=== PATIENT | female | born 1990 | race Caucasian/White ===

== ENCOUNTER 2023-01-22 17:11 | Inpatient (IN) ==
[2023-01-22] MEDS ORDERED: LIDOCAINE 1% LOCAL 20 ML VIAL INFIL PRN (19:44)
[2023-01-22] MEDS ORDERED: OXYTOCIN 30 UNITS/500 ML BAG IV PRN (19:44)
--- NOTE | 2023-01-22 19:58 | Labor Progress Brief Note ---
Date of Service January 22, 2023 Subjective 32yo @ 37w1d with SIUP. Patient arrived to office today for scheduled care visit and was found to have no FHT. She had no LOF, no VB and no Ctx. has been complicated by velamentous cord insertion, but otherwise has been essentially unremarkable. She had a routine visit at 34w6d and all was well. She called the office at 36w1d with c/o decreased FM and had a NST which was reassuring. She notes she felt good FM over the weekend after that, and even yesterday evening she feels sure she was noting movement. The patient had her mother and MIL with her at the office today anticipating a growth scan due to velamentous cord. Although the patient voices that she expected everything was OK, the scan unfortunately diagnosed IUFD, a vertex- presenting baby measuring 36w6d, and appeared to show a clot in the cord. The patient was counseled on the diagnosis by Dr. Ríos in the office and given options of delivery or Wednesday, and she preferred to come to L&D to proceed with treatment tonight. She arrived with her Mom and MIL, and her Dad and the FOB arrived together shortly thereafter. She and the FOB were given time together to grieve, and the family called the director social welfare to come to the hospital to visit with them this evening. Assessment & Plan (1) demise: Plan: Counseling with patient and family on diagnosis made today at office. Cause is felt to be velamentous cord insertion with likely clot in the cord, aka "cord accident," and it was reviewed with the patient and family that this is not something which she is at fault for nor could have influenced; it is an unlikely, but known and possible, risk of the velamentous insertion. We discussed that additional testing can be done to look for causes of IUFD, but at this time patient does not have an interest in genetic testing nor autopsy. She was counseled on options for proceeding from here: vaginal delivery via IOL, delivery electively with regional or general anesthesia. She is interested in beginning an IOL once the director social welfare's visit is completed. She would like an epidural placed prior to onset of induction agents. She understands that there is a possibility of delivery being required, as it may for any term delivery, in the event of CPD, and that she will be able to choose regional or GETA if that occurs. Her mom voices that Mallory herself was delivered by as narrow pelvis runs in their family. Patient says she understands and accepts this if it becomes necessary. Will get basic labs and additional IUFD workup labs, place IV, and wait for family/director social welfare visitation to be complete before vaginal exam and determination of induction agents per patient wishes. (2) Velamentous insertion of umbilical cord: Admission and Anticipated Discharge Date Admission Date: January 22, 2023 Physical Exam Constitutional: WD/WN, vitals as above Eyes: PERRL, conjunctivae normal, anicteric sclerae Neck: supple Respiratory: normal respiratory effort and able to speak in complete sentences; no respiratory distress Cardiovascular: Rate/Rhythm: regular rate and regular rhythm Gastrointestinal (Abdomen): Gravid / AGA, nontender Psychiatric: A+Ox3, euthymic affect Genitourinary: Cervical exam deferred until after family/director social welfare visit at patient request. Results & Data Vital Signs (Past 12 Hours) Vital Signs Temp Pulse Resp BP 01/22/23 17:31 133 H 135/83 01/22/23 17:23 98.8 F 20 Coding Level of Care Code None Diagnoses demise Velamentous insertion of umbilical cord O43.129
[2023-01-22] MEDS: LACTATED RINGER'S 1,000 ML IV PRN ×2 (21:51→22:51)
[2023-01-22] MEDS ORDERED: ePHEDrine sulfate 50 MG/ML AMP ONE (22:40)
[2023-01-22] MEDS ORDERED: fentaNYL citrate PF 100 MCG/2 ML VIAL ONE (22:40)
[2023-01-22] MEDS ORDERED: SODIUM CHLORIDE 0.9% PF INJ 10 ML VIAL ONE (22:40)
[2023-01-22] MEDS ORDERED: fentANYL 2 MCG/ML BUPIVacaine 0.125%-NSS 100ML BAG ONE (22:40)
[2023-01-22] MEDS ORDERED: LIDOCAINE 2%/EPINEPHRINE 1:200,000 20 ML PF ONE (22:41)
[2023-01-22] MEDS ORDERED: BUPIVACAINE 0.25% PF 30 ML VIAL ONE (22:41)
[2023-01-22] MEDS ORDERED: miSOPROStoL 50 MCG TAB PV ONE (23:01)
[2023-01-22 23:12] LABS: Hematocrit (blood only) 33.4 % (37.0-47.0); Hemoglobin 11.2 g/dl (12.0-16.0); Mean Corpuscular Hemoglobin 29.2 pg (25.0-34.0); Mean Corpuscular Hgb Conc 33.5 g/dL (32.0-36.0); Mean Platelet Volume 10.5 fL (9.4-12.4); Platelet Count 302 K/uL (130-400); RDW Coefficient of Variation 13.5 % (11.5-14.5); RDW Standard Deviation 42.1 fL (36.4-46.3); Red Blood Count 3.84 M/uL (4.20-5.40); White Blood Count 11.74 K/ul (4.8-10.8)
[2023-01-22] MEDS ORDERED: fentaNYL citrate PF 100 MCG/2 ML VIAL EPI PRN (23:16)
[2023-01-22] MEDS ORDERED: fentaNYL citrate PF 100 MCG/2 ML VIAL EPI STA (23:16)
[2023-01-22] MEDS ORDERED: LIDOCAINE 2% MPF LOCAL 5 ML VIAL EPI PRN (23:16)
[2023-01-22] MEDS ORDERED: NALBUPHINE HCL INJ 10 MG/ML AMP IV PRN (23:16)
[2023-01-22] MEDS ORDERED: SODIUM CHLORIDE 0.9% PF INJ 10 ML VIAL EPI PRN (23:16)
[2023-01-22] MEDS ORDERED: SODIUM CHLORIDE 0.9% PF INJ 10 ML VIAL EPI STA (23:16)
[2023-01-22] MEDS ORDERED: NALOXONE HCL 0.4 MG/1 ML VIAL/CARP IV PRN (23:16)
[2023-01-22] MEDS ORDERED: BUPIVACAINE 0.25% PF 30 ML VIAL EPI PRN (23:16)
[2023-01-22] MEDS ORDERED: ROPIVACAINE 0.5% PF 5 MG/ML 20 ML VIAL EPI PRN (23:16)
[2023-01-22] MEDS ORDERED: BUPIVACAINE 0.25% PF 30 ML VIAL EPI STA (23:16)
[2023-01-22] MEDS ORDERED: diphenhydrAMINE 50 MG/ML VIAL IV PRN (23:16)
[2023-01-22] MEDS ORDERED: NALOXONE HCL 1 MG in SODIUM CHLORIDE 0.9% 1,000 ML IV PRN (23:16)
[2023-01-22] MEDS ORDERED: LIDOCAINE 2%/EPINEPHRINE 1:200,000 20 ML PF EPI STA (23:16)
--- NOTE | 2023-01-22 23:16 | Anesthesiology Consultation ---
Date of Service January 22, 2023 Assessment & Plan Chart Review Chart Review: Acceptable Risk for Labor Epidural Consults Requested none History Height/Weight Height: 5 ft 2 in Weight: 107.955 kg Allergies Allergy/AdvReac Type Severity Reaction Status Date / Time No Known Allergies Allergy Verified 01/06/23 15:03 Medications Home Medications Medication Instructions Recorded Confirmed Last Taken prenat.vits,tona,[id number] 1 tab PO DAILY 10/07/20 01/06/23 Unknown promethazine 12.5 mg tablet 12.5 mg PO Q6H PRN nausea and 06/22/22 01/06/23 Unknown vomiting #30 tabs Active Medications Generic Name Dose Route Start Last Admin Trade Name Freq PRN Reason Stop Dose Admin Lactated Ringer's 1,000 mls @ 125 mls/hr 01/22/23 19:44 01/22/23 22:51 Lr IV 01/24/23 19:43 125 mls/hr .Q8H PRN Administration L&D Protocol Protocol Past Medical History Medical History (Updated 01/22/23 @ 16:50 by Bhavesh Ríos MD, FACOG) Measles Varicella vaccine Past Family History Family History (Updated 07/06/22 @ 09:06 by Pily Monson, MARGAUX) Grandmother (Maternal) Breast cancer Grandfather (Maternal) Diabetes Stroke H/O heart artery stent Denies family history of Ovarian cancer Colorectal cancer Past Surgical History Surgical History (Updated 07/06/22 @ 09:04 by Pily Monson, RN) S/P rhinoplasty Social History Smoking Status: Never smoker Do You Dip or Chew Tobacco: No Hx Alcohol Use: No Hx Substance Use: No Physical Exam Vital Signs Last Vital Signs Temp 37.0 C 01/22/23 21:57 Pulse 129 H 01/22/23 21:57 Resp 18 01/22/23 21:57 BP 119/76 01/22/23 21:57 Constitutional WD/WN, vitals as above Eyes PERRL, conjunctivae normal, anicteric sclerae Respiratory normal respiratory effort and able to speak in complete sentences; no respiratory distress Cardiovascular Rate/Rhythm: regular rate and regular rhythm Psychiatric A+Ox3, euthymic affect Testing Laboratory Results 01/22/23 22:35
[2023-01-22 23:31] LABS: Albumin Level 3.2 gm/dl (3.4-5.0); BUN Creatinine Ratio 10.2 (10-20); Bilirubin,Total 0.3 mg/dl (0.2-1.0); Calcium 8.7 mg/dl (8.6-10.3); Creatinine Clr Calc Pharmacy 188.8 ml/min; Est GFR (African American) 148.4 ml/min; Globulin 3.1 gm/dl (2.5-4.0); Potassium 3.6 mmol/L (3.5-5.1); Total Protein 6.3 gm/dl (6.0-8.3)
[2023-01-22] MEDS: fentANYL 2 MCG/ML BUPIVacaine 0.125%-NSS 100ML BAG EPI PRN (23:46)
[2023-01-23] MEDS: ePHEDrine sulfate 50 MG/ML AMP IV PRN ×2 (00:04→00:27)
--- NOTE | 2023-01-23 00:15 | Labor Progress Brief Note ---
Date of Service January 23, 2023 Subjective Patient feels ready to begin IOL. Has obtained epidural which she requested be in place prior to any induction agents including cytotec. Assessment & Plan (1) demise: Plan Labs so far normal except for mild leukocytosis likely c/w . Induction begun with cytotec. Plan is for hollis placement, as previously discussed with patient, given likely prolonged time in bed without ambulating to void / need for repeated straight catheterization. Will also order SCD's given likely prolonged time in bed. Admission and Anticipated Discharge Date Admission Date: January 22, 2023 Physical Exam Genitourinary: cl/th/hi Cytotec 50mcg placed PV [place] quiet Results & Data Vital Signs (Past 12 Hours) Vital Signs Temp Pulse Resp BP Pulse Ox 01/23/23 00:11 86 97/54 L 94 01/23/23 00:09 95 01/23/23 00:09 82 01/23/23 00:09 84 89/53 L 01/23/23 00:07 81 95/52 L 01/23/23 00:04 84 87/48 L 95 01/23/23 00:03 69 84/42 L 01/23/23 00:02 112 H 90/44 L 01/23/23 00:00 124 H 94 01/22/23 23:59 131 H 112/59 L 95 01/22/23 23:57 141 H 120/56 L 01/22/23 23:55 141 H 118/58 L 01/22/23 23:54 147 H 96 01/22/23 23:53 142 H 120/58 L 01/22/23 23:51 139 H 136/69 01/22/23 23:49 143 H 135/72 95 01/22/23 23:47 129 H 126/72 01/22/23 23:45 126 H 135/68 01/22/23 23:44 127 H 95 01/22/23 23:39 121 H 97 01/22/23 23:34 81 L 01/22/23 23:34 130 H 01/22/23 23:34 133 H 92 01/22/23 23:29 139 H 96 01/22/23 23:24 134 H 98 01/22/23 21:57 98.6 F 129 H 18 119/76 01/22/23 17:31 133 H 135/83 01/22/23 17:23 98.8 F 20 Coding Level of Care Code None Diagnoses demise
[2023-01-23 02:46] LABS: Appearance Urine Clear (Clear); Bacteria Urine Automated Negative (Negative); Bilirubin Urine Negative (Negative); Blood Urine Negative (Negative); Color Urine Yellow; Epithelial Cell Urine Auto 20-30 /lpf (0-5); Glucose Urine UA Negative (Negative); Ketones Urine 1+ (Negative); Leukocyte Esterase Urine Negative (Negative); Nitrite Urine Negative (Negative); Protein Urine Trace (Negative); RBC Urine Automated 0-4 /hpf (0-4); Specific Gravity Urine 1.011 (1.000-1.030); Urobilinogen Urine Negative (Negative); pH Urine 6.5 (4.5-7.5)
[2023-01-23 04:02] LABS: Amphetamines+Metham, Urine Neg (Neg); Barbiturates, Urine Neg (Neg); Benzodiazepine, Urine Neg (Neg); Cocaine, Urine Neg (Neg); MDMA (Ecstacy), Urine Neg (Neg); Methadone, Urine Neg (Neg); Opiate, Urine Pos (Neg); Phencyclidine, Urine Neg (Neg)
[2023-01-23] MEDS ORDERED: miSOPROStoL 50 MCG TAB ONE (04:17)
--- NOTE | 2023-01-23 04:29 | Labor Progress Brief Note ---
Date of Service January 23, 2023 Subjective Comfortable with epidural, hollis, SCD's. Just had IV replaced as it was not running well. Assessment & Plan (1) demise: Plan: IOL in progress. First dose cytotec with some cervical change. Would advise another dose given low Menezes score at this point. 50mcg administered PV. Admission and Anticipated Discharge Date Admission Date: January 22, 2023 Physical Exam Genitourinary: ft/50/-2 Small bloody show on glove No LOF [place] Q2m Results & Data Vital Signs (Past 12 Hours) Vital Signs Temp Pulse Resp BP Pulse Ox Pulse Ox O2 Del Method 01/23/23 02:00 95 Room Air 01/23/23 04:19 134 H 93 01/23/23 04:18 139 H 128/61 01/23/23 04:14 126 H 94 01/23/23 04:10 125 H 88 L 01/23/23 04:09 123 H 94 01/23/23 04:04 120 H 93 01/23/23 03:59 120 H 93 01/23/23 03:54 124 H 94 01/23/23 03:49 120 H 94 01/23/23 03:50 121 H 125/55 L 01/23/23 03:44 122 H 96 01/23/23 03:41 120 H 82 L 01/23/23 03:39 111 H 94 01/23/23 03:34 94 01/23/23 03:34 108 H 01/23/23 03:34 105 H 106/56 L 01/23/23 03:29 105 H 95 01/23/23 03:24 108 H 94 01/23/23 03:19 111 H 94 01/23/23 03:18 114 H 110/66 01/23/23 03:14 112 H 94 01/23/23 03:09 110 H 93 01/23/23 03:04 112 H 95 01/23/23 03:03 111 H 120/65 01/23/23 02:59 115 H 94 01/23/23 02:54 111 H 94 01/23/23 02:49 112 H 93 01/23/23 02:48 111 H 130/62 01/23/23 02:44 118 H 96 01/23/23 02:39 126 H 94 01/23/23 02:34 122 H 94 01/23/23 02:32 123 H 01/23/23 02:32 129 H 118/61 89 L 01/23/23 02:29 117 H 97 01/23/23 02:24 118 H 96 01/23/23 02:19 108 H 95 01/23/23 02:14 107 H 96 01/23/23 02:15 112 H 134/65 01/23/23 02:12 116 H 130/74 01/23/23 02:09 114 H 96 01/23/23 02:04 117 H 96 01/23/23 02:01 116 H 132/91 01/23/23 01:59 114 H 99 01/23/23 01:56 123 H 140/63 01/23/23 01:54 118 H 95 01/23/23 01:51 109 H 130/69 01/23/23 01:49 104 H 95 01/23/23 01:46 117 H 129/73 01/23/23 01:44 121 H 95 01/23/23 01:45 122 H 90 01/23/23 01:39 110 H 93 01/23/23 01:40 109 H 111/65 01/23/23 01:37 113 H 94 01/23/23 01:36 110 H 120/65 01/23/23 01:34 104 H 94 01/23/23 01:32 110 H 117/63 01/23/23 01:30 105 H 93 01/23/23 01:29 120 H 94 01/23/23 01:26 110 H 111/65 01/23/23 01:24 105 H 94 01/23/23 01:21 113 H 118/64 01/23/23 01:19 112 H 92 01/23/23 01:14 106 H 95 01/23/23 01:15 102 H 116/58 L 01/23/23 01:13 91 H 94 01/23/23 01:12 90 128/62 01/23/23 01:09 90 96 01/23/23 01:06 97 H 93 01/23/23 01:04 86 94 01/23/23 01:05 89 110/61 01/23/23 01:01 95 H 106/57 L 01/23/23 00:59 95 01/23/23 00:59 103 H 01/23/23 00:59 116 H 92 01/23/23 00:57 105 H 118/67 01/23/23 00:54 100 H 95 01/23/23 00:52 102 H 94 01/23/23 00:50 110 H 110/58 L 01/23/23 00:49 97 H 94 01/23/23 00:47 93 H 93 01/23/23 00:45 99 H 106/58 L 01/23/23 00:44 102 H 93 01/23/23 00:42 104 H 93 01/23/23 00:41 101 H 115/66 01/23/23 00:39 86 92 01/23/23 00:34 118 H 96 01/23/23 00:33 115 H 126/68 01/23/23 00:30 116 H 109/79 01/23/23 00:29 102 H 95 01/23/23 00:27 76 93 01/23/23 00:26 81 83/44 L 01/23/23 00:24 92 H 96 01/23/23 00:21 109 H 106/58 L 01/23/23 00:19 120 H 98/53 L 96 01/23/23 00:17 115 H 104/57 L 01/23/23 00:15 102 H 105/57 L 01/23/23 00:14 107 H 95 01/23/23 00:13 105 H 104/59 L 01/23/23 00:11 86 97/54 L 94 01/23/23 00:09 95 01/23/23 00:09 82 01/23/23 00:09 84 89/53 L 01/23/23 00:07 81 95/52 L 01/23/23 00:04 84 87/48 L 95 01/23/23 00:03 69 84/42 L 01/23/23 00:02 112 H 90/44 L 01/23/23 00:00 124 H 94 01/22/23 23:59 131 H 112/59 L 95 01/22/23 23:57 141 H 120/56 L 01/22/23 23:55 141 H 118/58 L 01/22/23 23:54 147 H 96 01/22/23 23:53 142 H 120/58 L 01/22/23 23:51 139 H 136/69 01/22/23 23:49 143 H 135/72 95 01/22/23 23:47 129 H 126/72 01/22/23 23:45 126 H 135/68 01/22/23 23:44 127 H 95 01/22/23 23:39 121 H 97 01/22/23 23:34 81 L 01/22/23 23:34 130 H 01/22/23 23:34 133 H 92 01/22/23 23:29 139 H 96 01/22/23 23:24 134 H 98 01/22/23 21:57 98.6 F 129 H 18 119/76 01/22/23 17:31 133 H 135/83 01/22/23 17:23 98.8 F 20 Coding Level of Care Code None Diagnoses demise
[2023-01-23 05:22] LABS: Amphetamines+Metham, Urine Neg (Neg); Barbiturates, Urine Neg (Neg); Benzodiazepine, Urine Neg (Neg); Cocaine, Urine Neg (Neg); MDMA (Ecstacy), Urine Neg (Neg); Methadone, Urine Neg (Neg); Opiate, Urine Pos (Neg); Phencyclidine, Urine Neg (Neg)
[2023-01-23] MEDS: LACTATED RINGER'S 1,000 ML IV PRN ×2 (07:14→21:43)
[2023-01-23] MEDS: fentANYL 2 MCG/ML BUPIVacaine 0.125%-NSS 100ML BAG EPI PRN ×2 (08:26→16:48)
[2023-01-23] MEDS: OXYTOCIN 30 UNITS/500 ML BAG IV PRN (11:03)
--- NOTE | 2023-01-23 12:43 | Obstetrical Progress Note ---
Date of Service January 23, 2023 Assessment & Plan (1) demise: Plan: IUFD at 37 weeks with cervix now favorable enough to place cervical balloon. will also start pitocin augmentation. plant to AROM when balloon is delivered if not already ruptured NOTE: balloon placed at 1000 this morning Admission and Anticipated Discharge Date Admission Date: January 22, 2023 Subjective Patient assessed at 10 am this morning. patient still comfortable with epidural analgesia. Review of Systems Review of Systems: All systems reviewed & are unremarkable except as noted in HPI & below Physical Exam Constitutional: WD/WN, vitals as above Psychiatric: A+Ox3, euthymic affect Genitourinary: OB Exam Abdomen: + vertex (?face presentation) and + irregular contractions Manual OB Exam: + cervical dilation 1 cm, + cervical effacement 80% and + station -2 OB Exam Monitor Tracing: + external FHT monitor used cervical balloon placed under direct visualization. pooling of bloody fluid vaginal vault noted. 40cc sterile water placed into the balloon and the catheter placed on traction and attached to her right thigh. she tolerated the procedure well. Results & Data Vital Signs (Past 12 Hours) Vital Signs Temp Pulse Resp BP Pulse Ox Pulse Ox O2 Del Method 01/23/23 07:15 98.8 F 16 01/23/23 02:00 95 Room Air 01/23/23 12:35 129 H 98 01/23/23 12:34 125 H 116/55 L 01/23/23 12:30 127 H 96 01/23/23 12:25 131 H 97 01/23/23 12:20 136 H 99 01/23/23 12:19 144 H 134/77 01/23/23 12:15 142 H 98 01/23/23 12:10 166 H 95 01/23/23 12:05 133 H 100 01/23/23 12:03 133 H 113/55 L 01/23/23 12:00 146 H 98 01/23/23 11:55 131 H 98 01/23/23 11:50 126 H 98 01/23/23 11:48 123 H 108/59 L 01/23/23 11:45 134 H 99 01/23/23 11:40 120 H 97 01/23/23 11:35 117 H 97 01/23/23 11:33 118 H 111/60 01/23/23 11:30 125 H 98 01/23/23 11:25 127 H 97 01/23/23 11:20 123 H 98 01/23/23 11:18 126 H 112/63 01/23/23 11:15 130 H 97 01/23/23 11:10 133 H 96 01/23/23 11:05 136 H 98 01/23/23 11:04 134 H 106/64 01/23/23 11:00 125 H 96 01/23/23 10:55 119 H 100 01/23/23 10:50 127 H 100 01/23/23 10:48 126 H 109/59 L 01/23/23 10:45 132 H 95 01/23/23 10:39 134 H 100 01/23/23 10:34 134 H 96 01/23/23 10:33 127 H 112/58 L 01/23/23 10:29 129 H 96 01/23/23 10:24 142 H 90 01/23/23 10:20 142 H 82 L 01/23/23 10:19 120 H 126/69 95 01/23/23 10:14 112 H 93 01/23/23 10:09 125 H 95 01/23/23 10:04 134 H 93 01/23/23 10:03 130 H 120/64 01/23/23 10:00 134 H 87 L 01/23/23 09:59 131 H 92 01/23/23 09:54 90 01/23/23 09:54 132 H 01/23/23 09:54 143 H 87 L 01/23/23 09:49 141 H 93 01/23/23 09:48 141 H 124/66 01/23/23 09:44 132 H 93 01/23/23 09:39 139 H 94 01/23/23 09:34 131 H 94 01/23/23 09:33 136 H 119/56 L 01/23/23 09:29 133 H 95 01/23/23 09:24 128 H 93 01/23/23 09:19 113 H 92 01/23/23 09:20 120 H 87 L 01/23/23 09:14 110 H 94 01/23/23 09:09 111 H 95 01/23/23 09:04 93 01/23/23 09:04 106 H 01/23/23 09:04 107 H 106/59 L 01/23/23 08:59 106 H 94 01/23/23 08:54 113 H 93 01/23/23 08:52 119 H 84 L 01/23/23 08:49 112 H 109/55 L 93 01/23/23 08:44 106 H 93 01/23/23 08:39 114 H 94 01/23/23 08:34 93 01/23/23 08:34 108 H 01/23/23 08:34 105 H 113/57 L 01/23/23 08:29 120 H 94 01/23/23 08:24 114 H 92 01/23/23 08:19 122 H 94 01/23/23 08:18 121 H 125/60 01/23/23 08:14 129 H 96 01/23/23 08:09 121 H 91 01/23/23 08:04 92 01/23/23 08:04 113 H 01/23/23 08:04 117 H 87 L 01/23/23 08:03 110 H 94/54 L 01/23/23 07:59 101 H 93 01/23/23 07:54 105 H 93 01/23/23 07:49 99 H 87/51 L 94 01/23/23 07:44 105 H 92 01/23/23 07:39 108 H 92 01/23/23 07:34 93 01/23/23 07:34 111 H 01/23/23 07:34 112 H 107/57 L 01/23/23 07:29 115 H 94 01/23/23 07:24 118 H 94 01/23/23 07:20 141 H 86 L 01/23/23 07:19 134 H 118/67 93 01/23/23 07:14 118 H 94 01/23/23 07:09 109 H 93 01/23/23 07:04 115 H 93 01/23/23 07:03 116 H 93/54 L 01/23/23 06:59 106 H 93 01/23/23 06:54 110 H 94 01/23/23 06:49 111 H 93 01/23/23 06:48 116 H 87/44 L 01/23/23 06:44 111 H 92 01/23/23 06:39 108 H 93 01/23/23 06:34 106 H 92 01/23/23 06:33 111 H 90/44 L 01/23/23 06:29 109 H 93 01/23/23 06:24 111 H 93 01/23/23 06:19 110 H 93 01/23/23 06:18 113 H 93/46 L 01/23/23 06:14 109 H 93 01/23/23 06:09 105 H 93 01/23/23 06:04 110 H 93 01/23/23 06:03 107 H 92/45 L 01/23/23 05:59 110 H 93 01/23/23 05:54 109 H 92 01/23/23 05:49 112 H 93 01/23/23 05:48 105 H 89/50 L 01/23/23 05:44 113 H 92 01/23/23 05:39 112 H 94 01/23/23 05:34 115 H 94 01/23/23 05:33 105 H 107/56 L 01/23/23 05:29 111 H 94 01/23/23 05:24 111 H 94 01/23/23 05:19 113 H 94 01/23/23 05:18 118 H 113/56 L 01/23/23 05:14 127 H 96 01/23/23 05:09 123 H 93 01/23/23 05:05 123 H 113/53 L 01/23/23 05:04 131 H 93 01/23/23 04:59 131 H 93 01/23/23 04:54 122 H 93 01/23/23 04:49 139 H 94 01/23/23 04:48 141 H 156/80 H 01/23/23 04:44 141 H 93 01/23/23 04:39 132 H 92 01/23/23 04:34 128 H 94 01/23/23 04:33 86 L 01/23/23 04:33 133 H 01/23/23 04:33 123 H 123/58 L 01/23/23 04:29 136 H 92 01/23/23 04:24 122 H 92 01/23/23 04:25 119 H 89 L 01/23/23 04:19 134 H 93 01/23/23 04:18 139 H 128/61 01/23/23 04:14 126 H 94 01/23/23 04:10 125 H 88 L 01/23/23 04:09 123 H 94 01/23/23 04:04 120 H 93 01/23/23 03:59 120 H 93 01/23/23 03:54 124 H 94 01/23/23 03:49 120 H 94 01/23/23 03:50 121 H 125/55 L 01/23/23 03:44 122 H 96 01/23/23 03:41 120 H 82 L 01/23/23 03:39 111 H 94 01/23/23 03:34 94 01/23/23 03:34 108 H 01/23/23 03:34 105 H 106/56 L 01/23/23 03:29 105 H 95 01/23/23 03:24 108 H 94 01/23/23 03:19 111 H 94 01/23/23 03:18 114 H 110/66 01/23/23 03:14 112 H 94 01/23/23 03:09 110 H 93 01/23/23 03:04 112 H 95 01/23/23 03:03 111 H 120/65 01/23/23 02:59 115 H 94 01/23/23 02:54 111 H 94 01/23/23 02:49 112 H 93 01/23/23 02:48 111 H 130/62 01/23/23 02:44 118 H 96 01/23/23 02:39 126 H 94 01/23/23 02:34 122 H 94 01/23/23 02:32 123 H 01/23/23 02:32 129 H 118/61 89 L 01/23/23 02:29 117 H 97 01/23/23 02:24 118 H 96 01/23/23 02:19 108 H 95 01/23/23 02:14 107 H 96 01/23/23 02:15 112 H 134/65 01/23/23 02:12 116 H 130/74 01/23/23 02:09 114 H 96 01/23/23 02:04 117 H 96 01/23/23 02:01 116 H 132/91 01/23/23 01:59 114 H 99 01/23/23 01:56 123 H 140/63 01/23/23 01:54 118 H 95 01/23/23 01:51 109 H 130/69 01/23/23 01:49 104 H 95 01/23/23 01:46 117 H 129/73 01/23/23 01:44 121 H 95 01/23/23 01:45 122 H 90 01/23/23 01:39 110 H 93 01/23/23 01:40 109 H 111/65 01/23/23 01:37 113 H 94 01/23/23 01:36 110 H 120/65 01/23/23 01:34 104 H 94 01/23/23 01:32 110 H 117/63 01/23/23 01:30 105 H 93 01/23/23 01:29 120 H 94 01/23/23 01:26 110 H 111/65 01/23/23 01:24 105 H 94 01/23/23 01:21 113 H 118/64 01/23/23 01:19 112 H 92 01/23/23 01:14 106 H 95 01/23/23 01:15 102 H 116/58 L 01/23/23 01:13 91 H 94 01/23/23 01:12 90 128/62 01/23/23 01:09 90 96 01/23/23 01:06 97 H 93 01/23/23 01:04 86 94 01/23/23 01:05 89 110/61 01/23/23 01:01 95 H 106/57 L 01/23/23 00:59 95 01/23/23 00:59 103 H 01/23/23 00:59 116 H 92 01/23/23 00:57 105 H 118/67 01/23/23 00:54 100 H 95 01/23/23 00:52 102 H 94 01/23/23 00:50 110 H 110/58 L 01/23/23 00:49 97 H 94 01/23/23 00:47 93 H 93 01/23/23 00:45 99 H 106/58 L 01/23/23 00:44 102 H 93 01/23/23 00:42 104 H 93 PG Care Time/CCT Total # of Minutes Spent Total Time Spent with Patient: Total time spent is greater than 50% in coordination of care (as documented) at patient's floor/unit and/or counseling patient: Coding Level of Care Code None Diagnoses demise
--- NOTE | 2023-01-23 14:49 | Labor Progress Brief Note ---
Date of Service January 23, 2023 Subjective Reason For Note: Routine Evaluation Current Pain Level(1-10): 0 balloon expulsed and in the vagina cervix now 4cm/80/-2 vertex AROM clear fluid contractions now every 4 minutes on 8 milliunits pitocin Review of Systems All systems reviewed & are unremarkable except as noted in HPI & below Assessment & Plan (1) demise: Plan AROM successful for a copious amount of clear fluid vertex now definitely presenting no longer face presentation continue pitocin augmentation Admission and Anticipated Discharge Date Admission Date: January 22, 2023 Physical Exam Constitutional: WD/WN, vitals as above Psychiatric: A+Ox3, euthymic affect Results & Data Vital Signs (Past 12 Hours) Vital Signs Temp Pulse Resp BP Pulse Ox 01/23/23 07:15 98.8 F 16 01/23/23 14:42 115 H 97 01/23/23 14:36 115 H 96 01/23/23 14:30 16 01/23/23 14:30 16 01/23/23 14:33 116 H 114/60 01/23/23 14:31 122 H 97 01/23/23 13:30 16 01/23/23 13:30 16 01/23/23 14:26 124 H 96 01/23/23 14:00 18 01/23/23 14:00 98.4 F 18 01/23/23 14:23 123 H 86 L 01/23/23 14:21 123 H 97 01/23/23 14:18 122 H 118/59 L 01/23/23 14:16 128 H 98 01/23/23 14:11 128 H 98 01/23/23 14:06 123 H 100 01/23/23 14:04 114 H 118/56 L 01/23/23 14:01 118 H 99 01/23/23 13:56 111 H 99 01/23/23 13:51 129 H 98 01/23/23 13:48 121 H 113/64 01/23/23 13:46 121 H 98 01/23/23 13:41 123 H 98 01/23/23 13:36 127 H 100 01/23/23 13:33 126 H 113/61 01/23/23 13:31 129 H 98 01/23/23 13:25 122 H 100 01/23/23 13:20 120 H 97 01/23/23 13:18 121 H 117/66 01/23/23 13:15 126 H 96 01/23/23 13:10 135 H 100 01/23/23 13:05 130 H 99 01/23/23 13:03 126 H 116/62 01/23/23 13:00 122 H 98 01/23/23 12:55 121 H 98 01/23/23 12:50 99 01/23/23 12:50 127 H 01/23/23 12:50 126 H 115/61 01/23/23 12:45 124 H 99 01/23/23 12:40 125 H 97 01/23/23 12:35 129 H 98 01/23/23 12:34 125 H 116/55 L 01/23/23 12:30 127 H 16 96 01/23/23 12:25 131 H 97 01/23/23 12:20 136 H 99 01/23/23 12:19 144 H 134/77 01/23/23 12:15 142 H 98 01/23/23 12:10 166 H 95 01/23/23 12:05 133 H 100 01/23/23 12:03 133 H 113/55 L 01/23/23 12:00 146 H 98 01/23/23 11:55 131 H 98 01/23/23 11:50 126 H 98 01/23/23 11:48 123 H 108/59 L 01/23/23 11:45 134 H 99 01/23/23 11:40 120 H 97 01/23/23 11:35 117 H 97 01/23/23 11:33 118 H 111/60 01/23/23 11:30 125 H 98 01/23/23 11:25 127 H 97 01/23/23 11:20 123 H 98 01/23/23 11:18 126 H 112/63 01/23/23 11:15 130 H 97 01/23/23 11:10 133 H 96 01/23/23 11:05 136 H 98 01/23/23 11:04 134 H 106/64 01/23/23 11:00 125 H 96 01/23/23 10:55 119 H 100 01/23/23 10:50 127 H 100 01/23/23 10:48 126 H 109/59 L 01/23/23 10:45 132 H 95 01/23/23 10:39 134 H 100 01/23/23 10:34 134 H 96 01/23/23 10:33 127 H 112/58 L 01/23/23 10:29 129 H 96 01/23/23 10:24 142 H 90 01/23/23 10:20 142 H 82 L 01/23/23 10:19 120 H 126/69 95 01/23/23 10:14 112 H 93 01/23/23 10:09 125 H 95 01/23/23 10:04 134 H 93 01/23/23 10:03 130 H 120/64 01/23/23 10:00 134 H 87 L 01/23/23 09:59 131 H 92 01/23/23 09:54 90 01/23/23 09:54 132 H 01/23/23 09:54 143 H 87 L 01/23/23 09:49 141 H 93 01/23/23 09:48 141 H 124/66 01/23/23 09:44 132 H 93 01/23/23 09:39 139 H 94 01/23/23 09:34 131 H 94 01/23/23 09:33 136 H 119/56 L 01/23/23 09:29 133 H 95 01/23/23 09:24 128 H 93 01/23/23 09:19 113 H 92 01/23/23 09:20 120 H 87 L 01/23/23 09:14 110 H 94 01/23/23 09:09 111 H 95 01/23/23 09:04 93 01/23/23 09:04 106 H 01/23/23 09:04 107 H 106/59 L 01/23/23 08:59 106 H 94 01/23/23 08:54 113 H 93 01/23/23 08:52 119 H 84 L 01/23/23 08:49 112 H 109/55 L 93 01/23/23 08:44 106 H 93 01/23/23 08:39 114 H 94 01/23/23 08:34 93 01/23/23 08:34 108 H 01/23/23 08:34 105 H 113/57 L 01/23/23 08:29 120 H 94 01/23/23 08:24 114 H 92 01/23/23 08:19 122 H 94 01/23/23 08:18 121 H 125/60 01/23/23 08:14 129 H 96 01/23/23 08:09 121 H 91 01/23/23 08:04 92 01/23/23 08:04 113 H 01/23/23 08:04 117 H 87 L 01/23/23 08:03 110 H 94/54 L 01/23/23 07:59 101 H 93 01/23/23 07:54 105 H 93 01/23/23 07:49 99 H 87/51 L 94 01/23/23 07:44 105 H 92 01/23/23 07:39 108 H 92 01/23/23 07:34 93 01/23/23 07:34 111 H 01/23/23 07:34 112 H 107/57 L 01/23/23 07:29 115 H 94 01/23/23 07:24 118 H 94 01/23/23 07:20 141 H 86 L 01/23/23 07:19 134 H 118/67 93 01/23/23 07:14 118 H 94 01/23/23 07:09 109 H 93 01/23/23 07:04 115 H 93 01/23/23 07:03 116 H 93/54 L 01/23/23 06:59 106 H 93 01/23/23 06:54 110 H 94 01/23/23 06:49 111 H 93 01/23/23 06:48 116 H 87/44 L 01/23/23 06:44 111 H 92 01/23/23 06:39 108 H 93 01/23/23 06:34 106 H 92 01/23/23 06:33 111 H 90/44 L 01/23/23 06:29 109 H 93 01/23/23 06:24 111 H 93 01/23/23 06:19 110 H 93 01/23/23 06:18 113 H 93/46 L 01/23/23 06:14 109 H 93 01/23/23 06:09 105 H 93 01/23/23 06:04 110 H 93 01/23/23 06:03 107 H 92/45 L 01/23/23 05:59 110 H 93 01/23/23 05:54 109 H 92 01/23/23 05:49 112 H 93 01/23/23 05:48 105 H 89/50 L 01/23/23 05:44 113 H 92 01/23/23 05:39 112 H 94 01/23/23 05:34 115 H 94 01/23/23 05:33 105 H 107/56 L 01/23/23 05:29 111 H 94 01/23/23 05:24 111 H 94 01/23/23 05:19 113 H 94 01/23/23 05:18 118 H 113/56 L 01/23/23 05:14 127 H 96 01/23/23 05:09 123 H 93 01/23/23 05:05 123 H 113/53 L 01/23/23 05:04 131 H 93 01/23/23 04:59 131 H 93 01/23/23 04:54 122 H 93 01/23/23 04:49 139 H 94 01/23/23 04:48 141 H 156/80 H 01/23/23 04:44 141 H 93 01/23/23 04:39 132 H 92 01/23/23 04:34 128 H 94 01/23/23 04:33 86 L 01/23/23 04:33 133 H 01/23/23 04:33 123 H 123/58 L 01/23/23 04:29 136 H 92 01/23/23 04:24 122 H 92 01/23/23 04:25 119 H 89 L 01/23/23 04:19 134 H 93 01/23/23 04:18 139 H 128/61 01/23/23 04:14 126 H 94 01/23/23 04:10 125 H 88 L 01/23/23 04:09 123 H 94 01/23/23 04:04 120 H 93 01/23/23 03:59 120 H 93 01/23/23 03:54 124 H 94 01/23/23 03:49 120 H 94 01/23/23 03:50 121 H 125/55 L 01/23/23 03:44 122 H 96 01/23/23 03:41 120 H 82 L 01/23/23 03:39 111 H 94 01/23/23 03:34 94 01/23/23 03:34 108 H 01/23/23 03:34 105 H 106/56 L 01/23/23 03:29 105 H 95 01/23/23 03:24 108 H 94 01/23/23 03:19 111 H 94 01/23/23 03:18 114 H 110/66 10/28/23 03:14 112 H 94 01/23/23 03:09 110 H 93 01/23/23 03:04 112 H 95 01/23/23 03:03 111 H 120/65 01/23/23 02:59 115 H 94 01/23/23 02:54 111 H 94 01/23/23 02:49 112 H 93 01/23/23 02:48 111 H 130/62
[2023-01-23] MEDS ORDERED: ONDANSETRON INJ 2 MG/ML 2 ML VIAL IV PRN (21:32)
--- NOTE | 2023-01-23 23:15 | Labor Progress Brief Note ---
Date of Service January 23, 2023 Subjective Reason For Note: Routine Evaluation Current Pain Level(1-10): 0 pitocin at 22 milliunits contractions had been every 2-3 minutes and are now spacing out again patient still comfortable - not feeling any pressure cervix is 6-7cm 90%/-3 presentation now feels like face presentation - mentum anterior will continue to try to get a reasonable contraction pattern- pitocin maximum dose now set at 30 milliunits will reassess if she starts to feel pressure or pit is at 30 may need wash-out. will continue to try position changes and peanut ball so far- afebrile and comfortable so will continue current plan Review of Systems All systems reviewed & are unremarkable except as noted in HPI & below Assessment & Plan (1) demise: Admission and Anticipated Discharge Date Admission Date: January 22, 2023 Results & Data Vital Signs (Past 12 Hours) Vital Signs Temp Pulse Resp BP Pulse Ox 01/23/23 23:04 112 H 101/55 L 01/23/23 23:03 125 H 94 01/23/23 22:58 107 H 95 01/23/23 22:53 124 H 98 01/23/23 22:49 101 H 106/61 01/23/23 22:48 101 H 95 01/23/23 22:43 105 H 95 01/23/23 22:38 111 H 95 01/23/23 22:33 95 01/23/23 22:33 103 H 01/23/23 22:33 107 H 146/88 H 01/23/23 22:28 102 H 97 01/23/23 22:23 107 H 96 01/23/23 22:19 107 H 110/55 L 01/23/23 22:18 118 H 96 01/23/23 22:13 116 H 96 01/23/23 22:08 124 H 97 01/23/23 22:03 115 H 113/59 L 97 01/23/23 21:58 120 H 97 01/23/23 21:55 18 01/23/23 21:55 97.9 F 18 01/23/23 21:53 117 H 97 01/23/23 21:48 116 H 97 01/23/23 21:49 117 H 119/69 01/23/23 21:43 116 H 97 01/23/23 21:38 117 H 95 01/23/23 21:33 113 H 114/64 96 01/23/23 21:28 124 H 97 01/23/23 21:23 115 H 97 01/23/23 21:18 101 H 114/62 95 01/23/23 21:13 112 H 95 01/23/23 21:08 114 H 95 01/23/23 21:04 107 H 119/66 01/23/23 21:03 113 H 95 01/23/23 20:58 120 H 97 01/23/23 20:53 110 H 96 01/23/23 20:48 117 H 128/69 96 01/23/23 20:43 109 H 95 01/23/23 20:38 116 H 95 01/23/23 20:33 113 H 122/68 95 01/23/23 20:28 121 H 97 01/23/23 20:23 99.0 F 118 H 97 01/23/23 20:20 114 H 127/67 01/23/23 20:18 119 H 98 01/23/23 20:13 113 H 97 01/23/23 20:08 119 H 96 01/23/23 20:03 100 01/23/23 20:03 125 H 01/23/23 20:03 125 H 121/58 L 01/23/23 19:58 116 H 96 01/23/23 19:53 120 H 96 01/23/23 19:48 96 01/23/23 19:48 134 H 01/23/23 19:48 117 H 129/59 L 01/23/23 19:43 131 H 96 01/23/23 19:00 18 01/23/23 19:00 97.9 F 18 01/23/23 19:38 122 H 95 01/23/23 19:33 126 H 97 01/23/23 19:34 125 H 125/66 01/23/23 19:28 132 H 96 01/23/23 19:23 131 H 97 01/23/23 19:18 145 H 97 01/23/23 19:19 150 H 122/73 01/23/23 19:13 120 H 96 01/23/23 19:00 16 01/23/23 19:00 16 01/23/23 19:08 128 H 98 01/23/23 19:03 127 H 97 01/23/23 19:04 127 H 121/64 01/23/23 18:58 124 H 98 01/23/23 18:53 119 H 96 01/23/23 18:48 96 01/23/23 18:48 123 H 01/23/23 18:48 116 H 129/68 01/23/23 18:43 124 H 96 01/23/23 18:38 129 H 96 01/23/23 18:33 96 01/23/23 18:33 123 H 01/23/23 18:33 123 H 119/60 01/23/23 18:30 16 01/23/23 18:30 16 01/23/23 18:28 119 H 98 01/23/23 18:23 125 H 96 01/23/23 18:18 125 H 116/59 L 96 01/23/23 18:13 127 H 94 01/23/23 18:08 124 H 96 01/23/23 18:03 135 H 116/60 98 01/23/23 18:00 18 01/23/23 18:00 98.4 F 18 01/23/23 17:58 135 H 98 01/23/23 17:53 122 H 95 01/23/23 17:48 133 H 116/67 95 01/23/23 17:43 135 H 96 01/23/23 17:38 133 H 97 01/23/23 17:33 95 01/23/23 17:33 131 H 01/23/23 17:30 16 01/23/23 17:30 16 01/23/23 17:33 141 H 106/68 01/23/23 17:28 124 H 99 01/23/23 17:23 132 H 97 01/23/23 17:18 122 H 119/64 99 01/23/23 17:13 126 H 98 01/23/23 17:08 128 H 100 01/23/23 17:00 16 01/23/23 17:00 16 01/23/23 17:03 129 H 99 01/23/23 17:04 121 H 120/73 01/23/23 16:58 130 H 99 01/23/23 16:53 129 H 100 01/23/23 16:48 131 H 111/56 L 100 01/23/23 16:43 125 H 100 01/23/23 16:38 121 H 98 01/23/23 16:34 121 H 114/62 01/23/23 16:32 118 H 93 01/23/23 16:30 16 01/23/23 16:30 98.4 F 16 01/23/23 16:27 116 H 95 01/23/23 16:22 126 H 96 01/23/23 16:17 117 H 98 01/23/23 16:18 113 H 117/60 01/23/23 16:12 118 H 97 01/23/23 16:07 107 H 98 01/23/23 16:02 110 H 97 01/23/23 16:03 108 H 123/56 L 01/23/23 16:00 16 01/23/23 16:00 16 01/23/23 15:57 107 H 99 01/23/23 15:30 16 01/23/23 15:30 16 01/23/23 15:52 107 H 97 01/23/23 15:49 109 H 121/54 L 01/23/23 15:47 109 H 98 01/23/23 15:42 115 H 100 01/23/23 15:37 111 H 98 01/23/23 15:32 107 H 99 01/23/23 15:33 106 H 117/62 01/23/23 15:27 106 H 98 01/23/23 15:22 109 H 99 01/23/23 15:19 105 H 126/58 L 01/23/23 15:17 106 H 96 01/23/23 15:12 106 H 96 01/23/23 15:07 113 H 98 01/23/23 15:00 16 01/23/23 15:00 16 01/23/23 15:04 116 H 115/66 01/23/23 15:02 110 H 96 01/23/23 14:57 119 H 100 01/23/23 14:52 109 H 96 01/23/23 14:47 117 H 97 01/23/23 14:48 115 H 104/59 L 01/23/23 14:42 115 H 97 01/23/23 14:36 115 H 96 01/23/23 14:30 16 01/23/23 14:30 16 01/23/23 14:33 116 H 114/60 01/23/23 14:31 122 H 97 01/23/23 13:30 16 01/23/23 13:30 16 01/23/23 14:26 124 H 96 01/23/23 14:00 18 01/23/23 14:00 98.4 F 18 01/23/23 14:23 123 H 86 L 01/23/23 14:21 123 H 97 01/23/23 14:18 122 H 118/59 L 01/23/23 14:16 128 H 98 01/23/23 14:11 128 H 98 01/23/23 14:06 123 H 100 01/23/23 14:04 114 H 118/56 L 01/23/23 14:01 118 H 99 01/23/23 13:56 111 H 99 01/23/23 13:51 129 H 98 01/23/23 13:48 121 H 113/64 01/23/23 13:46 121 H 98 01/23/23 13:41 123 H 98 01/23/23 13:36 127 H 100 01/23/23 13:33 126 H 113/61 01/23/23 13:31 129 H 98 01/23/23 13:25 122 H 100 01/23/23 13:20 120 H 97 01/23/23 13:18 121 H 117/66 01/23/23 13:15 126 H 96 01/23/23 13:10 135 H 100 01/23/23 13:05 130 H 99 01/23/23 13:03 126 H 116/62 01/23/23 13:00 122 H 98 01/23/23 12:55 121 H 98 01/23/23 12:50 99 01/23/23 12:50 127 H 01/23/23 12:50 126 H 115/61 01/23/23 12:45 124 H 99 01/23/23 12:40 125 H 97 01/23/23 12:35 129 H 98 01/23/23 12:34 125 H 116/55 L 01/23/23 12:30 127 H 16 96 01/23/23 12:25 131 H 97 01/23/23 12:20 136 H 99 01/23/23 12:19 144 H 134/77 01/23/23 12:15 142 H 98 01/23/23 12:10 166 H 95 01/23/23 12:05 133 H 100 01/23/23 12:03 133 H 113/55 L 01/23/23 12:00 146 H 98 01/23/23 11:55 131 H 98 01/23/23 11:50 126 H 98 01/23/23 11:48 123 H 108/59 L 01/23/23 11:45 134 H 99 01/23/23 11:40 120 H 97 01/23/23 11:35 117 H 97 01/23/23 11:33 118 H 111/60 01/23/23 11:30 125 H 98 01/23/23 11:25 127 H 97 01/23/23 11:20 123 H 98 01/23/23 11:18 126 H 112/63 01/23/23 11:15 130 H 97 01/23/23 11:10 133 H 96
[2023-01-24] MEDS ORDERED: NALOXONE HCL 0.4 MG/1 ML VIAL/CARP IV PRN (00:16)
[2023-01-24] MEDS ORDERED: BUPIVACAINE 0.25% PF 30 ML VIAL EPI STA (00:16)
[2023-01-24] MEDS ORDERED: diphenhydrAMINE 50 MG/ML VIAL IV PRN (00:16)
[2023-01-24] MEDS ORDERED: fentaNYL citrate PF 100 MCG/2 ML VIAL EPI PRN (00:16)
[2023-01-24] MEDS ORDERED: LIDOCAINE 2% MPF LOCAL 5 ML VIAL EPI PRN (00:16)
[2023-01-24] MEDS ORDERED: NALBUPHINE HCL INJ 10 MG/ML AMP IV PRN (00:16)
[2023-01-24] MEDS ORDERED: ROPIVACAINE 0.5% PF 5 MG/ML 20 ML VIAL EPI PRN (00:16)
[2023-01-24] MEDS ORDERED: ePHEDrine sulfate 50 MG/ML AMP IV PRN (00:16)
[2023-01-24] MEDS ORDERED: SODIUM CHLORIDE 0.9% PF INJ 10 ML VIAL EPI STA (00:16)
[2023-01-24] MEDS ORDERED: fentaNYL citrate PF 100 MCG/2 ML VIAL EPI STA (00:16)
[2023-01-24] MEDS ORDERED: NALOXONE HCL 1 MG in SODIUM CHLORIDE 0.9% 1,000 ML IV PRN (00:16)
[2023-01-24] MEDS ORDERED: BUPIVACAINE 0.25% PF 30 ML VIAL EPI PRN (00:16)
[2023-01-24] MEDS ORDERED: LIDOCAINE 2%/EPINEPHRINE 1:200,000 20 ML PF EPI STA (00:16)
[2023-01-24] MEDS ORDERED: SODIUM CHLORIDE 0.9% PF INJ 10 ML VIAL EPI PRN (00:16)
[2023-01-24] MEDS: fentANYL 2 MCG/ML BUPIVacaine 0.125%-NSS 100ML BAG EPI PRN ×4 (00:45→21:22)
[2023-01-24] MEDS: LACTATED RINGER'S 1,000 ML IV PRN ×3 (05:12→18:04)
[2023-01-24] MEDS: OXYTOCIN 30 UNITS/500 ML BAG IV PRN ×2 (06:46→22:19)
--- NOTE | 2023-01-24 07:19 | Labor Progress Brief Note ---
Date of Service January 24, 2023 Subjective Reason For Note: Routine Evaluation Current Pain Level(1-10): 2 Afebrile - having some pain now in right lower quadrant but has been lying on her left side on a peanut ball pitocin now on 30 milliunits for several hours and contraction pattern is still not consistent cervix exam: 7100/-1 occiput now presenting Review of Systems All systems reviewed & are unremarkable except as noted in HPI & below Assessment & Plan (1) demise: Plan: will do 30 minute pitocin wash out now to see if we can get a better contraction pattern restart pit at 15 milliunits occiput now the presenting part and well applied to cervix with descent to -1 station now will continue with current pitocin induction plan as patient continues to be afebrile Admission and Anticipated Discharge Date Admission Date: January 22, 2023 Physical Exam Constitutional: WD/WN, vitals as above Psychiatric: A+Ox3, euthymic affect Results & Data Vital Signs (Past 12 Hours) Vital Signs Temp Pulse Resp BP Pulse Ox 01/24/23 07:10 99 H 93 01/24/23 07:05 99 H 93 01/24/23 07:03 96 H 99/58 L 01/24/23 07:00 101 H 94 01/24/23 06:55 98 H 94 01/24/23 06:50 101 H 95 01/24/23 06:48 101 H 100/58 L 01/24/23 06:45 104 H 95 01/24/23 06:40 103 H 93 01/24/23 06:35 102 H 92 01/24/23 06:33 109 H 107/61 01/24/23 06:30 101 H 93 01/24/23 06:25 113 H 94 01/24/23 06:20 111 H 95 01/24/23 06:19 108 H 107/58 L 01/24/23 06:15 109 H 96 01/24/23 06:16 109 H 74 L 01/24/23 06:10 111 H 96 01/24/23 06:05 110 H 97 01/24/23 06:00 134 H 70 L 01/24/23 05:59 118 H 76 L 01/24/23 05:55 111 H 96 01/24/23 05:50 116 H 96 01/24/23 05:48 112 H 95/51 L 01/24/23 05:45 114 H 96 01/24/23 05:40 113 H 95 01/24/23 05:35 111 H 96 01/24/23 05:33 115 H 115/57 L 01/24/23 05:30 123 H 98 01/24/23 05:25 118 H 98 01/24/23 05:20 123 H 96 01/24/23 05:19 120 H 105/57 L 01/24/23 05:15 120 H 97 01/24/23 05:10 123 H 97 01/24/23 05:05 120 H 97 01/24/23 05:03 118 H 115/59 L 01/24/23 05:00 118 H 99 01/24/23 04:56 18 01/24/23 04:56 100.0 F H 18 01/24/23 04:55 112 H 98 01/24/23 04:50 100 H 98 01/24/23 04:48 108 H 102/57 L 01/24/23 04:45 102 H 100 01/24/23 04:40 105 H 95 01/24/23 04:35 106 H 95 01/24/23 04:33 105 H 103/55 L 01/24/23 04:30 102 H 95 01/24/23 04:25 102 H 97 01/23/23 23:37 18 01/23/23 23:37 98.8 F 18 01/24/23 04:20 101 H 97 01/24/23 04:18 105 H 110/56 L 01/24/23 04:15 104 H 93 01/24/23 04:14 111 H 89 L 01/24/23 04:10 106 H 94 01/24/23 04:05 102 H 97 01/24/23 04:03 108 H 104/57 L 01/24/23 04:00 102 H 97 01/24/23 03:55 101 H 97 01/24/23 03:50 102 H 98 01/24/23 03:48 101 H 100/58 L 01/24/23 03:45 100 H 97 01/24/23 03:40 100 H 97 01/24/23 03:35 104 H 99 01/24/23 03:33 98 H 95/54 L 01/24/23 03:30 97 H 100 01/24/23 03:25 101 H 98 01/24/23 03:20 99 H 99 01/24/23 03:18 102 H 93/52 L 01/24/23 03:15 102 H 96 01/24/23 03:10 104 H 96 01/24/23 03:05 102 H 97 01/24/23 03:03 106 H 97/54 L 01/24/23 03:00 102 H 97 01/24/23 02:55 103 H 97 01/24/23 02:50 102 H 96 01/24/23 02:48 105 H 99/53 L 01/24/23 02:45 103 H 96 01/24/23 02:40 105 H 95 01/24/23 02:39 113 H 89 L 01/24/23 02:35 106 H 95 01/24/23 02:33 102 H 99/56 L 01/24/23 02:30 104 H 95 01/24/23 02:25 104 H 95 01/24/23 02:20 102 H 96 01/24/23 02:18 104 H 94/47 L 01/24/23 02:15 103 H 96 01/24/23 02:10 101 H 96 01/24/23 02:05 104 H 96 01/24/23 02:03 105 H 93/54 L 01/24/23 02:00 103 H 96 01/24/23 01:55 104 H 96 01/24/23 01:50 105 H 96 01/24/23 01:48 102 H 98/53 L 01/24/23 01:45 97.9 F 107 H 18 96 01/24/23 01:40 101 H 95 01/24/23 01:35 102 H 96 01/24/23 01:33 106 H 96/51 L 01/24/23 01:30 109 H 96 01/24/23 01:25 101 H 94 01/24/23 01:20 102 H 93 01/24/23 01:18 105 H 92/53 L 01/24/23 01:15 103 H 93 01/24/23 01:10 103 H 93 01/24/23 01:05 104 H 94 01/24/23 01:03 100 H 89/50 L 01/24/23 01:00 104 H 93 01/24/23 00:55 99 H 93 01/24/23 00:50 100 H 93 01/24/23 00:48 103 H 86/50 L 01/24/23 00:45 102 H 93 01/24/23 00:40 102 H 93 01/24/23 00:35 101 H 92 01/24/23 00:33 101 H 84/49 L 01/24/23 00:30 100 H 92 01/24/23 00:25 101 H 93 01/24/23 00:20 100 H 93 01/24/23 00:19 98 H 84/46 L 01/24/23 00:15 99 H 93 01/24/23 00:10 103 H 93 01/24/23 00:05 99 H 94 01/24/23 00:03 98 H 80/44 L 01/24/23 00:00 99 H 95 01/23/23 23:55 101 H 93 01/23/23 23:50 100 H 95 01/23/23 23:48 100 H 94/53 L 01/23/23 23:45 104 H 94 01/23/23 23:40 104 H 95 01/23/23 23:35 104 H 95 01/23/23 23:33 108 H 106/58 L 01/23/23 23:30 103 H 95 01/23/23 23:18 113 H 96 01/23/23 23:13 107 H 96 01/23/23 23:08 110 H 95 01/23/23 23:04 112 H 101/55 L 01/23/23 23:03 125 H 94 01/23/23 22:58 107 H 95 01/23/23 22:53 124 H 98 01/23/23 22:49 101 H 106/61 01/23/23 22:48 101 H 95 01/23/23 22:43 105 H 95 01/23/23 22:38 111 H 95 01/23/23 22:33 95 01/23/23 22:33 103 H 01/23/23 22:33 107 H 146/88 H 01/23/23 22:28 102 H 97 01/23/23 22:23 107 H 96 01/23/23 22:19 107 H 110/55 L 01/23/23 22:18 118 H 96 01/23/23 22:13 116 H 96 01/23/23 22:08 124 H 97 01/23/23 22:03 115 H 113/59 L 97 01/23/23 21:58 120 H 97 01/23/23 21:55 18 01/23/23 21:55 97.9 F 18 01/23/23 21:53 117 H 97 01/23/23 21:48 116 H 97 01/23/23 21:49 117 H 119/69 01/23/23 21:43 116 H 97 01/23/23 21:38 117 H 95 01/23/23 21:33 113 H 114/64 96 01/23/23 21:28 124 H 97 01/23/23 21:23 115 H 97 01/23/23 21:18 101 H 114/62 95 01/23/23 21:13 112 H 95 01/23/23 21:08 114 H 95 01/23/23 21:04 107 H 119/66 01/23/23 21:03 113 H 95 01/23/23 20:58 120 H 97 01/23/23 20:53 110 H 96 01/23/23 20:48 117 H 128/69 96 01/23/23 20:43 109 H 95 01/23/23 20:38 116 H 95 01/23/23 20:33 113 H 122/68 95 01/23/23 20:28 121 H 97 01/23/23 20:23 99.0 F 118 H 97 01/23/23 20:20 114 H 127/67 01/23/23 20:18 119 H 98 01/23/23 20:13 113 H 97 01/23/23 20:08 119 H 96 01/23/23 20:03 100 01/23/23 20:03 125 H 01/23/23 20:03 125 H 121/58 L 01/23/23 19:58 116 H 96 01/23/23 19:53 120 H 96 01/23/23 19:48 96 01/23/23 19:48 134 H 01/23/23 19:48 117 H 129/59 L 01/23/23 19:43 131 H 96 01/23/23 19:38 122 H 95 01/23/23 19:33 126 H 97 01/23/23 19:34 125 H 125/66 01/23/23 19:28 132 H 96 01/23/23 19:23 131 H 97 01/23/23 19:18 145 H 97 01/23/23 19:19 150 H 122/73
[2023-01-24] MEDS ORDERED: NURSING L&D Epidural Breakthrough Pain Update ONE (08:51)
[2023-01-24] MEDS ORDERED: GENTAMICIN CONSULT ACTIVE PRN ×2 (09:08)
[2023-01-24] MEDS ORDERED: GENTAMICIN SULFATE IV STA (09:28)
[2023-01-24] MEDS ORDERED: DEXTROSE 5% IV STA (09:28)
--- NOTE | 2023-01-24 09:29 | Anesthesia Procedure Note ---
Date of Service January 24, 2023 Anesthesia Epidural Re-Dose Vital Signs Temp Pulse Resp BP Pulse Ox O2 Del Method 37.9 C H 112 H 20 113/56 L 95 Room Air 01/24/23 09:03 01/24/23 09:25 01/24/23 09:03 01/24/23 09:18 01/24/23 09:25 01/23/23 02:00 Notes Pain Intensity: 5 Dilatation (cm): 7.0 Effacement (%): 100 After Epidural Re-Dose Mental Status: alert / awake / arousable Pain: improving with treatment Airway Patency, RR, SpO2: stable & adequate BP & HR: stable & adequate
--- NOTE | 2023-01-24 09:33 | Communication Note ---
Date of Service: January 24, 2023 Pt. epidural bolused w/ 12 ml 0.17% bupivacaine + 100 mcgs fentanyl w/ incremental aspirations and injections w/o incident.Vital signs stable
[2023-01-24] MEDS: AMPICILLIN 2,000 MG in SODIUM CHLOR 0.9% MINI-B 100 ML IV SCH ×3 (09:58→22:07)
[2023-01-24] MEDS ORDERED: SODIUM CHLORIDE 0.9% PF INJ 10 ML VIAL ONE (11:57)
[2023-01-24] MEDS ORDERED: fentANYL 2 MCG/ML BUPIVacaine 0.125%-NSS 100ML BAG ONE (11:57)
[2023-01-24] MEDS ORDERED: LIDOCAINE 2%/EPINEPHRINE 1:200,000 20 ML PF ONE (11:57)
[2023-01-24] MEDS ORDERED: BUPIVACAINE 0.25% PF 30 ML VIAL ONE (11:57)
[2023-01-24] MEDS ORDERED: ePHEDrine sulfate 50 MG/ML AMP ONE (11:57)
[2023-01-24] MEDS ORDERED: fentaNYL citrate PF 100 MCG/2 ML VIAL ONE (11:57)
--- NOTE | 2023-01-24 12:02 | Obstetrical Progress Note ---
Date of Service January 24, 2023 Assessment & Plan Admission and Anticipated Discharge Date Admission Date: January 22, 2023 Subjective getting suprapubic pain with contractions now pitocin at 29 milliunits now after wash out epidural had been redosed at 9am having bloody show now contractions still continue to space out over time cervix exam-/0 will re-assess epidural analgesia will increase pit dose to maximum of 40 milliunits now Review of Systems Review of Systems: All systems reviewed & are unremarkable except as noted in HPI & below Results & Data Vital Signs (Past 12 Hours) Vital Signs Temp Pulse Resp BP Pulse Ox 01/24/23 11:55 115 H 95 01/24/23 11:50 118 H 95 01/24/23 11:48 122 H 126/65 01/24/23 11:45 120 H 97 01/24/23 11:40 117 H 96 01/24/23 11:35 115 H 93 01/24/23 11:33 114 H 114/56 L 01/24/23 11:30 123 H 95 01/24/23 11:25 119 H 95 01/24/23 11:20 105 H 93 01/24/23 11:19 115 H 134/63 01/24/23 11:15 109 H 94 01/24/23 11:10 105 H 94 01/24/23 11:05 105 H 93 01/24/23 11:03 107 H 122/60 01/24/23 11:00 107 H 95 01/24/23 10:55 111 H 93 01/24/23 10:50 115 H 94 01/24/23 10:48 108 H 123/60 01/24/23 10:45 104 H 90 01/24/23 10:40 106 H 94 01/24/23 10:35 105 H 93 01/24/23 10:33 104 H 116/55 L 01/24/23 10:30 105 H 94 01/24/23 10:25 107 H 93 01/24/23 10:20 118 H 94 01/24/23 10:18 110 H 122/59 L 01/24/23 10:15 105 H 93 01/24/23 10:10 99.1 F 101 H 18 92 01/24/23 10:05 116 H 92 01/24/23 10:03 112 H 120/58 L 01/24/23 10:00 121 H 96 01/24/23 09:55 99.1 F 108 H 20 92 01/24/23 09:50 120 H 96 01/24/23 09:49 122 H 129/69 01/24/23 09:45 124 H 97 01/24/23 09:40 121 H 95 01/24/23 09:35 131 H 92 01/24/23 09:30 112 H 94 01/24/23 09:25 112 H 95 01/24/23 09:20 116 H 96 01/24/23 09:18 113 H 20 113/56 L 01/24/23 09:15 112 H 95 01/24/23 09:12 114 H 81 L 01/24/23 09:10 115 H 95 01/24/23 09:05 107 H 94 01/24/23 09:03 100.2 F H 112 H 20 115/58 L 01/24/23 09:00 118 H 94 01/24/23 08:55 122 H 96 01/24/23 07:19 20 01/24/23 07:19 99.5 F 20 01/24/23 08:50 123 H 96 01/24/23 08:49 122 H 126/60 01/24/23 08:45 120 H 96 01/24/23 08:43 139 H 88 L 01/24/23 08:40 111 H 96 01/24/23 08:35 105 H 94 01/24/23 08:33 113 H 20 103/52 L 01/24/23 08:30 109 H 96 01/24/23 08:25 115 H 96 01/24/23 08:20 109 H 96 01/24/23 08:19 113 H 129/71 01/24/23 08:15 113 H 97 01/24/23 08:10 109 H 97 01/24/23 08:05 104 H 98 01/24/23 08:03 107 H 118/68 01/24/23 08:00 107 H 98 01/24/23 07:55 106 H 99 01/24/23 07:50 118 H 97 01/24/23 07:48 106 H 20 112/67 01/24/23 07:45 99 H 94 01/24/23 07:40 101 H 95 01/24/23 07:35 96 H 96 01/24/23 07:32 103 H 103/60 10/29/23 07:30 106 H 97 01/24/23 07:26 137 H 85 L 01/24/23 07:25 119 H 97 01/24/23 07:20 115 H 94 01/24/23 07:18 103 H 100/55 L 01/24/23 07:15 102 H 92 01/24/23 07:10 99 H 93 01/24/23 07:05 99 H 93 01/24/23 07:03 96 H 99/58 L 01/24/23 07:00 101 H 94 01/24/23 06:55 98 H 94 01/24/23 06:50 101 H 95 01/24/23 06:48 101 H 100/58 L 01/24/23 06:45 104 H 95 01/24/23 06:40 103 H 93 01/24/23 06:35 102 H 92 01/24/23 06:33 109 H 107/61 01/24/23 06:30 101 H 93 01/24/23 06:25 113 H 94 01/24/23 06:20 111 H 95 01/24/23 06:19 108 H 107/58 L 01/24/23 06:15 109 H 96 01/24/23 06:16 109 H 74 L 01/24/23 06:10 111 H 96 01/24/23 06:05 110 H 97 01/24/23 06:00 134 H 70 L 01/24/23 05:59 118 H 76 L 01/24/23 05:55 111 H 96 01/24/23 05:50 116 H 96 01/24/23 05:48 112 H 95/51 L 01/24/23 05:45 114 H 96 01/24/23 05:40 113 H 95 01/24/23 05:35 111 H 96 01/24/23 05:33 115 H 115/57 L 01/24/23 05:30 123 H 98 01/24/23 05:25 118 H 98 01/24/23 05:20 123 H 96 01/24/23 05:19 120 H 105/57 L 01/24/23 05:15 120 H 97 01/24/23 05:10 123 H 97 01/24/23 05:05 120 H 97 01/24/23 05:03 118 H 115/59 L 01/24/23 05:00 118 H 99 01/24/23 04:56 18 01/24/23 04:56 100.0 F H 18 01/24/23 04:55 112 H 98 01/24/23 04:50 100 H 98 01/24/23 04:48 108 H 102/57 L 01/24/23 04:45 102 H 100 01/24/23 04:40 105 H 95 01/24/23 04:35 106 H 95 01/24/23 04:33 105 H 103/55 L 01/24/23 04:30 102 H 95 01/24/23 04:25 102 H 97 01/24/23 04:20 101 H 97 01/24/23 04:18 105 H 110/56 L 01/24/23 04:15 104 H 93 01/24/23 04:14 111 H 89 L 01/24/23 04:10 106 H 94 01/24/23 04:05 102 H 97 01/24/23 04:03 108 H 104/57 L 01/24/23 04:00 102 H 97 01/24/23 03:55 101 H 97 01/24/23 03:50 102 H 98 01/24/23 03:48 101 H 100/58 L 01/24/23 03:45 100 H 97 01/24/23 03:40 100 H 97 01/24/23 03:35 104 H 99 01/24/23 03:33 98 H 95/54 L 01/24/23 03:30 97 H 100 01/24/23 03:25 101 H 98 01/24/23 03:20 99 H 99 01/24/23 03:18 102 H 93/52 L 01/24/23 03:15 102 H 96 01/24/23 03:10 104 H 96 01/24/23 03:05 102 H 97 01/24/23 03:03 106 H 97/54 L 01/24/23 03:00 102 H 97 01/24/23 02:55 103 H 97 01/24/23 02:50 102 H 96 01/24/23 02:48 105 H 99/53 L 01/24/23 02:45 103 H 96 01/24/23 02:40 105 H 95 01/24/23 02:39 113 H 89 L 01/24/23 02:35 106 H 95 01/24/23 02:33 102 H 99/56 L 01/24/23 02:30 104 H 95 01/24/23 02:25 104 H 95 01/24/23 02:20 102 H 96 01/24/23 02:18 104 H 94/47 L 01/24/23 02:15 103 H 96 01/24/23 02:10 101 H 96 01/24/23 02:05 104 H 96 01/24/23 02:03 105 H 93/54 L 01/24/23 02:00 103 H 96 01/24/23 01:55 104 H 96 01/24/23 01:50 105 H 96 01/24/23 01:48 102 H 98/53 L 01/24/23 01:45 97.9 F 107 H 18 96 01/24/23 01:40 101 H 95 01/24/23 01:35 102 H 96 01/24/23 01:33 106 H 96/51 L 01/24/23 01:30 109 H 96 01/24/23 01:25 101 H 94 01/24/23 01:20 102 H 93 01/24/23 01:18 105 H 92/53 L 01/24/23 01:15 103 H 93 01/24/23 01:10 103 H 93 01/24/23 01:05 104 H 94 01/24/23 01:03 100 H 89/50 L 01/24/23 01:00 104 H 93 01/24/23 00:55 99 H 93 01/24/23 00:50 100 H 93 01/24/23 00:48 103 H 86/50 L 01/24/23 00:45 102 H 93 01/24/23 00:40 102 H 93 01/24/23 00:35 101 H 92 01/24/23 00:33 101 H 84/49 L 01/24/23 00:30 100 H 92 01/24/23 00:25 101 H 93 01/24/23 00:20 100 H 93 01/24/23 00:19 98 H 84/46 L 01/24/23 00:15 99 H 93 01/24/23 00:10 103 H 93 01/24/23 00:05 99 H 94 01/24/23 00:03 98 H 80/44 L 01/24/23 00:00 99 H 95 PG Care Time/CCT Total # of Minutes Spent Total Time Spent with Patient: Total time spent is greater than 50% in coordination of care (as documented) at patient's floor/unit and/or counseling patient: Coding Level of Care Code None Diagnoses
--- NOTE | 2023-01-24 12:19 | Communication Note ---
Date of Service: January 24, 2023 @ 1215pm, Pt epidural bolused w/ 12 ml 0.17% bupivacaine + 100 mcgs fentanyl, using incremental aspirations and injections;vital signs stable;pain 6-7/8
--- NOTE | 2023-01-24 14:12 | Pharmacy Report ---
Pharmacy PK ABX Note - Date of Service January 24, 2023 - Assessment and Plan Assessment 32 year old F receiving ampicillin and gentamicin for treatment of coverage, possibly chorioamnionitis. demise noted. Intrapartum/post- gentamicin dosing is 5 mg/kg actual body weight IV q24h for patients with good CrCL. No levels needed unless continued after 72 hours. Ordered trough for day 3 in case it is extended past then. Plan Gentamicin * Maintenance dose: 540 mg IV every 24 hours * Trough level ordered for: 01/26 @ 0930 Pharmacy will continue to follow and will adjust dose/frequency as necessary. Thank you. Pharmacy has transitioned to AUC monitoring for vancomycin. AUC/RODRIGO is the preferred PK/PD target and is associated with decreased risk of nephrotoxicity compared to traditional trough targets.
[2023-01-24] MEDS ORDERED: SODIUM CHLORIDE 0.9% 250 ML IV PRN (14:32)
--- NOTE | 2023-01-24 17:46 | Labor Progress Brief Note ---
Date of Service January 24, 2023 Subjective Reason For Note: Routine Evaluation pitocin now on 39 milliunits/min- ctns now more consistent every 3-5 minutes feeling some pelvic pressure now (+) bloody show continues cervix exam: rim of cervix on right side/100/+1 will increase pit to 41 milliunits to keep contraction pattern consistent hope to be pushing soon Assessment & Plan Admission and Anticipated Discharge Date Admission Date: January 22, 2023 Results & Data Vital Signs (Past 12 Hours) Vital Signs Temp Pulse Resp BP Pulse Ox 01/24/23 17:40 115 H 95 01/24/23 17:35 122 H 95 01/24/23 17:33 117 H 113/59 L 01/24/23 17:30 118 H 96 01/24/23 17:25 125 H 94 01/24/23 17:20 126 H 95 01/24/23 17:18 129 H 117/58 L 01/24/23 17:15 119 H 95 01/24/23 17:10 110 H 93 01/24/23 17:05 109 H 95 01/24/23 17:04 107 H 122/66 01/24/23 17:00 108 H 94 01/24/23 16:55 111 H 95 01/24/23 16:50 107 H 92 01/24/23 16:48 106 H 113/65 01/24/23 16:45 107 H 92 01/24/23 16:40 109 H 93 01/24/23 16:35 105 H 93 01/24/23 16:33 102 H 108/59 L 01/24/23 16:30 108 H 93 01/24/23 16:25 109 H 93 01/24/23 16:20 109 H 93 01/24/23 16:18 103 H 106/57 L 01/24/23 16:15 111 H 94 01/24/23 16:10 108 H 93 01/24/23 16:05 109 H 93 01/24/23 16:03 108 H 109/64 01/24/23 16:00 108 H 94 01/24/23 15:55 105 H 94 01/24/23 15:50 111 H 95 01/24/23 15:48 111 H 114/59 L 01/24/23 15:45 121 H 96 01/24/23 15:40 116 H 96 01/24/23 15:35 117 H 97 01/24/23 15:34 118 H 120/66 01/24/23 15:30 120 H 99 01/24/23 15:25 94 01/24/23 15:25 119 H 01/24/23 15:25 128 H 87 L 01/24/23 15:20 115 H 100 01/24/23 15:18 120 H 128/70 01/24/23 15:16 127 H 87 L 01/24/23 15:15 122 H 100 01/24/23 15:10 122 H 100 01/24/23 15:05 113 H 97 01/24/23 15:03 113 H 132/71 01/24/23 15:00 116 H 98 01/24/23 14:55 118 H 100 01/24/23 14:50 117 H 97 01/24/23 14:49 115 H 115/60 01/24/23 14:45 118 H 98 01/24/23 14:40 117 H 98 01/24/23 14:35 122 H 99 01/24/23 14:33 122 H 20 133/74 01/24/23 14:30 117 H 98 01/24/23 14:25 115 H 99 01/24/23 14:20 117 H 100 01/24/23 14:18 111 H 117/64 01/24/23 14:15 113 H 100 01/24/23 14:10 116 H 98 01/24/23 14:05 121 H 100 01/24/23 14:00 123 H 18 98 01/24/23 13:55 126 H 99 01/24/23 13:50 120 H 98 01/24/23 13:45 120 H 100 01/24/23 13:44 120 H 77 L 01/24/23 13:40 122 H 20 100 01/24/23 13:35 121 H 100 01/24/23 13:33 122 H 134/64 01/24/23 13:30 131 H 98 01/24/23 13:25 115 H 97 01/24/23 13:20 118 H 100 01/24/23 13:18 115 H 132/58 L 01/24/23 13:15 98.8 F 127 H 20 98 01/24/23 13:10 113 H 95 01/24/23 13:05 111 H 94 01/24/23 13:03 110 H 106/55 L 01/24/23 13:00 108 H 97 01/24/23 12:55 114 H 96 01/24/23 12:50 117 H 98 01/24/23 12:49 113 H 112/54 L 01/24/23 12:45 116 H 97 01/24/23 12:40 116 H 100 01/24/23 12:35 129 H 97 01/24/23 12:33 125 H 112/63 01/24/23 12:30 131 H 97 01/24/23 12:25 113 H 93 01/24/23 12:20 112 H 93 01/24/23 12:18 112 H 110/56 L 01/24/23 12:15 113 H 95 01/24/23 12:10 112 H 95 01/24/23 12:05 117 H 96 01/24/23 12:03 111 H 117/58 L 01/24/23 12:00 112 H 95 01/24/23 11:55 115 H 95 01/24/23 11:50 118 H 95 01/24/23 11:48 122 H 126/65 01/24/23 11:45 120 H 97 01/24/23 11:40 117 H 96 01/24/23 11:35 115 H 93 01/24/23 11:33 114 H 114/56 L 01/24/23 11:30 123 H 95 01/24/23 11:25 119 H 95 01/24/23 11:20 105 H 93 01/24/23 11:19 115 H 134/63 01/24/23 11:15 109 H 94 01/24/23 11:10 105 H 94 01/24/23 11:05 105 H 93 01/24/23 11:03 107 H 122/60 01/24/23 11:00 107 H 95 01/24/23 10:55 111 H 93 01/24/23 10:50 115 H 94 01/24/23 10:48 108 H 123/60 01/24/23 10:45 104 H 90 01/24/23 10:40 106 H 94 01/24/23 10:35 105 H 93 01/24/23 10:33 104 H 116/55 L 01/24/23 10:30 105 H 94 01/24/23 10:25 107 H 93 01/24/23 10:20 118 H 94 01/24/23 10:18 110 H 122/59 L 01/24/23 10:15 105 H 93 01/24/23 10:10 99.1 F 101 H 18 92 01/24/23 10:05 116 H 92 01/24/23 10:03 112 H 120/58 L 01/24/23 10:00 121 H 96 01/24/23 09:55 99.1 F 108 H 20 92 01/24/23 09:50 120 H 96 01/24/23 09:49 122 H 129/69 01/24/23 09:45 124 H 97 01/24/23 09:40 121 H 95 01/24/23 09:35 131 H 92 01/24/23 09:30 112 H 94 01/24/23 09:25 112 H 95 01/24/23 09:20 116 H 96 01/24/23 09:18 113 H 20 113/56 L 01/24/23 09:15 112 H 95 01/24/23 09:12 114 H 81 L 01/24/23 09:10 115 H 95 01/24/23 09:05 107 H 94 01/24/23 09:03 100.2 F H 112 H 20 115/58 L 01/24/23 09:00 118 H 94 01/24/23 08:55 122 H 96 01/24/23 07:19 20 01/24/23 07:19 99.5 F 20 01/24/23 08:50 123 H 96 01/24/23 08:49 122 H 126/60 01/24/23 08:45 120 H 96 01/24/23 08:43 139 H 88 L 01/24/23 08:40 111 H 96 01/24/23 08:35 105 H 94 01/24/23 08:33 113 H 20 103/52 L 01/24/23 08:30 109 H 96 01/24/23 08:25 115 H 96 01/24/23 08:20 109 H 96 01/24/23 08:19 113 H 129/71 01/24/23 08:15 113 H 97 01/24/23 08:10 109 H 97 01/24/23 08:05 104 H 98 01/24/23 08:03 107 H 118/68 01/24/23 08:00 107 H 98 01/24/23 07:55 106 H 99 01/24/23 07:50 118 H 97 01/24/23 07:48 106 H 20 112/67 01/24/23 07:45 99 H 94 01/24/23 07:40 101 H 95 01/24/23 07:35 96 H 96 01/24/23 07:32 103 H 103/60 01/24/23 07:30 106 H 97 01/24/23 07:26 137 H 85 L 01/24/23 07:25 119 H 97 01/24/23 07:20 115 H 94 01/24/23 07:18 103 H 100/55 L 01/24/23 07:15 102 H 92 01/24/23 07:10 99 H 93 01/24/23 07:05 99 H 93 01/24/23 07:03 96 H 99/58 L 01/24/23 07:00 101 H 94 01/24/23 06:55 98 H 94 01/24/23 06:50 101 H 95 01/24/23 06:48 101 H 100/58 L 01/24/23 06:45 104 H 95 01/24/23 06:40 103 H 93 01/24/23 06:35 102 H 92 01/24/23 06:33 109 H 107/61 01/24/23 06:30 101 H 93 01/24/23 06:25 113 H 94 01/24/23 06:20 111 H 95 01/24/23 06:19 108 H 107/58 L 01/24/23 06:15 109 H 96 01/24/23 06:16 109 H 74 L 01/24/23 06:10 111 H 96 01/24/23 06:05 110 H 97 01/24/23 06:00 134 H 70 L 01/24/23 05:59 118 H 76 L 01/24/23 05:55 111 H 96 01/24/23 05:50 116 H 96 01/24/23 05:48 112 H 95/51 L 01/24/23 05:45 114 H 96
[2023-01-24 19:54] LABS: Hemoglobin 10.9 g/dl (12.0-16.0); Mean Corpuscular Hemoglobin 29.9 pg (25.0-34.0); Mean Corpuscular Hgb Conc 34.1 g/dL (32.0-36.0); Mean Corpuscular Volume 87.7 fL (80.0-100.0); Mean Platelet Volume 9.9 fL (9.4-12.4); Platelet Count 256 K/uL (130-400); RDW Coefficient of Variation 13.4 % (11.5-14.5); RDW Standard Deviation 41.9 fL (36.4-46.3); Red Blood Count 3.65 M/uL (4.20-5.40); White Blood Count 26.51 K/ul (4.8-10.8)
[2023-01-24 20:06] LABS: Partial Thromboplastin Ratio 1.2; Prothrombin Time 10.9 Seconds (9.0-12.0)
[2023-01-24 20:21] LABS: Basophils # (auto) 0.07 K/uL (0.00-0.20); Basophils % (auto) 0.3 %; Eosinophils # (auto) 0.01 K/uL (0.00-0.50); Immature Granulocytes # (auto) 0.24 K/uL (0.01-0.20); Immature Granulocytes % (auto) 0.9 %; Lymphocytes # (auto) 1.46 K/uL (1.20-3.40); Lymphocytes % (auto) 5.5 %; Monocytes # (auto) 1.96 K/uL (0.11-0.59); Monocytes % (auto) 7.4 %; Neutrophils # (auto) 22.77 K/uL (1.40-6.50); Neutrophils % (auto) 85.9 %
[2023-01-24] MEDS ORDERED: miSOPROStoL 200 MCG TAB ONE (23:26)
[2023-01-24] MEDS ORDERED: KETOROLAC 30 MG/ML VIAL ONE (23:37)
[2023-01-24] MEDS ORDERED: miSOPROStoL 200 MCG TAB PR ONE (23:50)
[2023-01-24] MEDS ORDERED: KETOROLAC 30 MG/ML VIAL IV ONE (23:50)
[2023-01-24] MEDS ORDERED: ACETAMINOPHEN 325 MG TAB PO PRN (23:50)
[2023-01-24] MEDS ORDERED: bisacodyL 10 MG SUPP PR PRN (23:50)
[2023-01-24] MEDS ORDERED: DIPHTHERIA/TETANUS/PERTUSSIS Vaccine (Tdap, Age 7+yrs) 0.5mL SYR/VL IM ONE (23:50)
[2023-01-24] MEDS ORDERED: oxyCODONE/ACETAMINOPHEN 5mg/325mg TAB PO PRN (23:50)
[2023-01-24] MEDS ORDERED: HYDROCORTISONE ACETATE 25 MG SUPP PR PRN (23:50)
[2023-01-24] MEDS ORDERED: OXYTOCIN 30 UNITS/500 ML BAG IV PRN (23:50)
[2023-01-24] MEDS ORDERED: BENZOCAINE 20% SPRY 85 APPLN/85 GM CAN EXT PRN (23:50)
--- NOTE | 2023-01-25 00:12 | Delivery Summary ---
Vaginal Delivery Summary Date of Service January 24, 2023 Vaginal Delivery Summary ( demise at 37 weeks) and 2nd Degree LAC Patient is a 32-year-old 2 para 1-0-1-0 who presented for induction because of intrauterine demise at 37 weeks. Her cervix was unfavorable initially and she was treated with Cytotec vaginally. She did receive epidural analgesia early in her admission. A cervical balloon was then placed once the cervix was dilated enough to insert it. The balloon was placed on Wednesday morning around 10 AM. Pitocin augmentation was then begun. After the balloon was expelled, membranes were ruptured for a copious amount of clear fluid. She required maximum amounts of Pitocin, (initially max of 30 milliunits) to secure a consistent contraction pattern. Initially the presenting part was the occiput. After membranes were ruptured and she was checked several hours later, presentation was either brow or face with mentum anterior. The presentation eventually restituted to occiput. Her maximum Pitocin dose eventually needed to be increased to 40 milliunits. It Was at this maximum pitocin dose that she finally had a regular contraction pattern albeit every 4-5 minutes. She progressed to full dilation and pushed effectively over intact perineum. After the head was delivered a tight nuchal cord was clamped and cut. The shoulders were noted to be presenting transversely. After rotating the right shoulder anteriorly, the rest the delivered easily. It was a male and he was placed on the mother's abdomen per her request. Approximately 6 cm of the proximal cord as it arose from the 's abdomen appeared to be clotted. The rest of the cord appeared to be normal. Despite gentle traction on the umbilical cord after 20 minutes ,it avulsed. Manual extraction of the placenta was then performed. The uterine cavity was then manually explored and found to be free of any retained placental tissue. bleeding was controlled with dilute Pitocin and rectal Cytotec 1000 mcg. Cytotec was given as a preca ution because of the high risk for uterine atony following such a long labor. A second-degree perineal laceration was repaired with 3-0 chromic. Estimated blood loss was 200 cc. Mother was in stable condition and grieving appropriately with her and mother. [facility] [place] Vaginal Delivery Charge Delivery Type Details: ( demise at 37 weeks) and 2nd Degree LAC
--- NOTE | 2023-01-25 00:33 | Anesthesia Procedure Note ---
Date of Service January 25, 2023 Anesthesia Post Epidural Note Vital Signs Vital Signs: Temp Pulse Resp BP Pulse Ox O2 Del Method 37.0 C 88 18 113/61 95 Room Air 01/24/23 23:42 01/25/23 00:12 01/24/23 23:57 01/25/23 00:12 01/24/23 23:41 01/23/23 02:00 Pain Intensity Lower Abdomen: Pain Intensity: 3 Left Abdomen: Pain Intensity: 3 Notes Mental Status: alert / awake / arousable and participated in evaluation Nausea / Vomiting: adequately controlled Pain: adequately controlled Airway Patency, RR, SpO2: stable & adequate BP & HR: stable & adequate Hydration State: stable & adequate Neuraxial Anesthesia: was administered and sensory block is resolving Anesthetic Complications: no major complications apparent and Pt Satisfied with anesthetic care Epidural: Removed without complications and With tip intact
[2023-01-25 04:50] LABS: HBSAG NON-REACTIVE (NON-REACTIVE)
[2023-01-25] MEDS: IBUPROFEN 600 MG TAB PO PRN ×4 (04:58→23:16)
[2023-01-25 06:24] LABS: Hematocrit (blood only) 30.6 % (37.0-47.0); Hemoglobin 10.5 g/dl (12.0-16.0); Mean Corpuscular Hemoglobin 29.7 pg (25.0-34.0); Mean Corpuscular Hgb Conc 34.3 g/dL (32.0-36.0); Mean Corpuscular Volume 86.4 fL (80.0-100.0); Mean Platelet Volume 10.3 fL (9.4-12.4); Platelet Count 296 K/uL (130-400); RDW Coefficient of Variation 13.7 % (11.5-14.5); RDW Standard Deviation 42.7 fL (36.4-46.3); Red Blood Count 3.54 M/uL (4.20-5.40); White Blood Count 32.14 K/ul (4.8-10.8)
--- NOTE | 2023-01-25 07:06 | Obstetrical Progress Note ---
Date of Service <Keena Pan MD - Last Filed: 01/25/23 07:06> January 25, 2023 Assessment & Plan <Keena Pan MD - Last Filed: 01/25/23 07:06> (1) Encounter for assessment: Plan Patient with the above mentioned history and findings was evaluated at bedside and found awake, alert, oriented in all spheres, afebrile, and in no acute distress. Vital signs showed no fever and blood pressures remained stable and has remained without symptoms of severity (e.g. vision changes, headaches, oliguria, etc.). Her blood type is O positive and today's hemoglobin is adequate at 10.5 g/dL. She is rubella immune. Overall, patient is doing well clinically. Will continue care. All questions were answered. <Jossie Pacheco MD, FACOG - Last Filed: 01/25/23 09:10> (1) Encounter for assessment: Subjective <Keena Pan MD - Last Filed: 01/25/23 07:06> Mallory is a 32 y/o female who is now PPD # 1 following at 37 wga after IOL due to IUFD. Reports feeling well overall this morning. _ abdominal cramping & _/10 pain well managed on analgesics. Voiding spontaneously. Not passing flatus or having bowel movements yet. Tolerating meals overnight and able to ambulate some. Some persistent lochia with some improvement this morning. Constitutional: no fever, no chills or no sweats Denies shortness of breath or difficulty breathing Cardiovascular: no chest pain or no palpitations Breast: no breast pain Genitourinary (female): no dysuria Neurologic: no headache(s) Denies changes in vision Physical Exam <Keena Pan MD - Last Filed: 01/25/23 07:06> General: Alert. Oriented to person, time, and place. Afebrile. No acute distress. Eyes: pupils equal and reactive to light bilaterally, extraocular movements intact. Cardiac: Regular rate and rhythm, no murmurs/rubs/gallops. Respiratory: Clear to auscultation bilaterally a/p, no wheezes/rales/rhonchi. No increased work of breathing. Symmetrical chest rise. No respiratory distress. Abdomen: Soft, nontender, nondistended. Bowel sounds present. Uterus: Uterine fundus firm, tender, and palpable at umbilicus. Lower Extremities: No lower extremity edema or swelling. No deep calf pain. Etelvina's negative bilaterally. Psych: Euthymic affect. Mood and affect congruence. Regular speech rate and content. Results & Data <Keena Pan MD - Last Filed: 01/25/23 07:06> Vital Signs (Past 12 Hours) Vital Signs Temp Pulse Resp BP Pulse Ox 01/25/23 04:00 37.0 C 18 01/25/23 02:25 18 01/25/23 00:27 18 01/25/23 00:12 18 01/24/23 23:57 18 01/24/23 23:42 37.0 C 100 H 18 108/57 L 01/24/23 19:23 37.6 C H 18 01/25/23 01:58 83 115/56 L 01/25/23 01:28 90 106/52 L 01/25/23 00:12 88 113/61 01/24/23 23:57 100 H 118/56 L 01/24/23 23:42 100 H 108/57 L 01/24/23 23:41 104 H 95 01/24/23 23:36 104 H 94 01/24/23 23:33 100 H 111/56 L 01/24/23 23:31 95 H 94 01/24/23 23:26 95 H 94 01/24/23 23:21 98 H 94 01/24/23 23:18 97 H 107/56 L 01/24/23 23:16 107 H 95 01/24/23 23:11 100 H 94 01/24/23 23:06 105 H 94 01/24/23 23:01 106 H 94 01/24/23 22:56 108 H 95 01/24/23 22:51 109 H 94 01/24/23 22:46 106 H 97 01/24/23 22:41 95 H 93 01/24/23 22:38 93 H 83 L 01/24/23 22:36 99 H 95 01/24/23 22:33 95 H 78 L 01/24/23 22:31 94 H 95 01/24/23 22:26 97 H 100 01/24/23 22:21 98 H 95 01/24/23 22:20 116 H 87 L 01/24/23 22:19 94 H 126/61 01/24/23 22:16 96 H 92 01/24/23 22:14 150 H 84 L 01/24/23 22:11 93 H 93 01/24/23 21:13 18 01/24/23 21:13 37.1 C 18 01/24/23 22:07 93 H 88 L 01/24/23 22:06 93 H 94 01/24/23 22:01 99 H 94 01/24/23 21:56 101 H 94 01/24/23 21:52 92 H 76 L 01/24/23 21:51 95 H 99 01/24/23 21:48 95 H 126/58 L 01/24/23 21:46 97 H 93 01/24/23 21:47 97 H 83 L 01/24/23 21:41 95 H 94 01/24/23 21:40 137 H 81 L 01/24/23 21:36 96 H 94 01/24/23 21:34 127 H 89 L 01/24/23 21:33 90 128/58 L 01/24/23 21:31 120 H 94 01/24/23 21:26 124 H 94 01/24/23 21:23 98 H 84 L 01/24/23 21:21 97 H 98 01/24/23 21:18 95 H 125/60 01/24/23 21:16 101 H 98 01/24/23 21:14 97 H 85 L 01/24/23 21:11 97 H 100 01/24/23 21:08 95 H 85 L 01/24/23 21:06 102 H 100 01/24/23 21:03 100 H 131/60 01/24/23 21:01 113 H 87 L 01/24/23 20:56 100 H 99 01/24/23 20:55 102 H 84 L 01/24/23 20:51 107 H 99 01/24/23 20:49 100 H 129/96 01/24/23 20:46 104 H 96 01/24/23 20:47 125 H 85 L 01/24/23 20:41 99 01/24/23 20:41 118 H 01/24/23 20:41 115 H 80 L 01/24/23 20:36 116 H 99 01/24/23 20:34 111 H 85 L 01/24/23 20:31 113 H 79 L 01/24/23 20:26 118 H 97 01/24/23 20:22 111 H 87 L 01/24/23 20:21 112 H 93 01/24/23 20:18 116 H 131/60 01/24/23 20:16 109 H 96 01/24/23 20:11 122 H 96 01/24/23 20:06 87 L 01/24/23 20:06 127 H 01/24/23 20:06 143 H 86 L 01/24/23 20:03 112 H 130/62 01/24/23 20:01 119 H 96 01/24/23 19:59 123 H 87 L 01/24/23 19:56 111 H 95 01/24/23 19:51 104 H 93 01/24/23 19:48 104 H 117/70 01/24/23 19:46 105 H 95 01/24/23 19:41 107 H 92 01/24/23 19:36 104 H 96 01/24/23 19:34 102 H 110/74 01/24/23 19:31 107 H 95 01/24/23 19:26 112 H 96 01/24/23 19:21 117 H 97 01/24/23 19:18 117 H 127/60 01/24/23 19:16 127 H 96 01/24/23 19:11 112 H 96 01/24/23 19:10 108 H 80 L 01/24/23 19:05 109 H 95 01/24/23 19:03 106 H 114/58 L <Jossie Pacheco MD, FACOG - Last Filed: 01/25/23 09:10> Co-Signing Physician Notes Resident Physician Supervision Note: I interviewed and examined the patient. Discussed with Dr. Pan and agree with findings and plan as documented in the note. Any exceptions or clarifications are listed here: WBC count is elevated this AM at 32K. The elevation without fever or other clinical signs of sepsis could be explained by the IUFD and evidence of decomposition of the fetus noted at delivery. However, we will continue with Ampicillin and Gentamicin IV for 24 hours to cover for possible chorioamnionitis as an etiology. Documented By: Jossie Pacheco MD, FACOG Resident Activity Tracking <Keena Pan MD - Last Filed: 01/25/23 07:06> Resident Involvement: Resident Care Provided Care Provided: OB Delivery
[2023-01-25 07:07] LABS: Codeine Urine NEGATIVE ng/mL (<50); Hydrocodone Urine NEGATIVE ng/mL (<50); Hydromor Urine NEGATIVE ng/mL (<50); Morphine Urine 240 ng/mL (<50); Norhydrocodone Conf Ur NEGATIVE ng/mL (<50); Noroxycodone Urine NEGATIVE ng/mL (<50); Oxycodone Urine NEGATIVE ng/mL (<50); Oxymorph Urine NEGATIVE ng/mL (<50)
[2023-01-25 07:07] LABS: Codeine Urine NEGATIVE ng/mL (<50); Hydrocodone Urine NEGATIVE ng/mL (<50); Hydromor Urine NEGATIVE ng/mL (<50); Morphine Urine 206 ng/mL (<50); Norhydrocodone Conf Ur NEGATIVE ng/mL (<50); Noroxycodone Urine NEGATIVE ng/mL (<50); Oxycodone Urine NEGATIVE ng/mL (<50); Oxymorph Urine NEGATIVE ng/mL (<50)
[2023-01-25] MEDS ORDERED: PRENATAL VITAMIN 1 TAB PO SCH (08:00)
[2023-01-25] MEDS ORDERED: GENTAMICIN CONSULT ACTIVE PRN (08:24)
[2023-01-25] MEDS: DOCUSATE SODIUM 100 MG CAP PO SCH ×2 (08:49→20:32)
[2023-01-25] MEDS: AMPICILLIN 2,000 MG in SODIUM CHLOR 0.9% MINI-B 100 ML IV SCH ×3 (09:10→20:32)
[2023-01-25] MEDS ORDERED: DEXTROSE 5% IV SCH (10:00)
[2023-01-25] MEDS ORDERED: GENTAMICIN SULFATE IV SCH (10:00)
[2023-01-25] MEDS ORDERED: GENTAMICIN SULFATE IV ONE (10:30)
[2023-01-25] MEDS ORDERED: DEXTROSE 5% IV ONE (10:30)
[2023-01-25] MEDS ORDERED: bisacodyL 5 MG TABEC PO SCH (20:00)
[2023-01-26] MEDS: AMPICILLIN 2,000 MG in SODIUM CHLOR 0.9% MINI-B 100 ML IV SCH (02:07)
[2023-01-26] MEDS ORDERED: diphenhydrAMINE Capsule 25 MG CAP PO ONE (02:13)
[2023-01-26 07:13] LABS: Basophils # (auto) 0.06 K/uL (0.00-0.20); Basophils % (auto) 0.3 %; Eosinophils % (auto) 0.6 %; Hematocrit (blood only) 30.3 % (37.0-47.0); Hemoglobin 10.3 g/dl (12.0-16.0); Immature Granulocytes # (auto) 0.27 K/uL (0.01-0.20); Immature Granulocytes % (auto) 1.6 %; Lymphocytes # (auto) 2.43 K/uL (1.20-3.40); Lymphocytes % (auto) 14.1 %; Mean Corpuscular Hemoglobin 29.9 pg (25.0-34.0); Mean Corpuscular Volume 88.1 fL (80.0-100.0); Mean Platelet Volume 10.2 fL (9.4-12.4); Neutrophils % (auto) 76.4 %; Platelet Count 296 K/uL (130-400); RDW Coefficient of Variation 13.7 % (11.5-14.5); RDW Standard Deviation 43.8 fL (36.4-46.3); Red Blood Count 3.44 M/uL (4.20-5.40); White Blood Count 17.26 K/ul (4.8-10.8)
--- NOTE | 2023-01-26 07:33 | Gynecologic Progress Note ---
Date of Service January 26, 2023 Assessment & Plan (1) demise: Plan: Patient reacting appropriately after vaginal delivery of demise diagnosed on Wednesday she her bleeding is minimal her pain is appropriate. She has no temperature elevation does not feel sick and has no unusual discharge I think with regards to the elevated white count of this come down significantly today I will stop the antibiotics altogether I do not feel oral antibiotics at home are indicated. We discussed the grieving process in depth I did discuss that antidepressants may be an option at this time we will hold on this I will have her make an appointment in the office with an early next week for follow-up if she has any concerns she will contact us before this Admission and Anticipated Discharge Date Admission Date: January 22, 2023 Results & Data Vital Signs (Past 12 Hours) Vital Signs Temp Pulse Resp BP 01/26/23 02:07 97.9 F 16 01/25/23 21:42 98.1 F 18 01/26/23 02:06 86 114/63 01/25/23 21:36 105 H 01/25/23 21:36 132/74 PG Care Time/CCT Total # of Minutes Spent Total Time Spent with Patient: Total time spent is greater than 50% in coordination of care (as documented) at patient's floor/unit and/or counseling patient: Coding Level of Care Code None Diagnoses demise
[2023-01-26 07:53] LABS: Creatinine Clr Calc Pharmacy 130.3 ml/min; Est GFR (African American) 129.7 ml/min; Est GFR (Non-African American) 111.9 ml/min
[2023-01-26] MEDS: IBUPROFEN 600 MG TAB PO PRN (08:09)
[2023-01-26] MEDS: DOCUSATE SODIUM 100 MG CAP PO SCH (08:11)
[2023-01-26] MEDS ORDERED: GENTAMICIN TROUGH ONE (09:30)
== END 2023-01-26 14:30 | disposition home or self-care (01) | DRG 807 ==
LOC: 4S1 17:11

== ENCOUNTER 2024-02-14 08:00 | Inpatient (IN) ==
[2024-02-14] MEDS ORDERED: OXYTOCIN 30 UNITS/NSS 30 UNITS/500 ML BAG IV PRN (08:44)
[2024-02-14] MEDS ORDERED: LIDOCAINE 1% LOCAL 20 ML VIAL INFIL PRN (08:44)
[2024-02-14 09:22] LABS: Hematocrit (blood only) 36.1 % (37.0-47.0); Hemoglobin 11.9 g/dl (12.0-16.0); Mean Corpuscular Hemoglobin 27.7 pg (25.0-34.0); Mean Corpuscular Volume 84.1 fL (80.0-100.0); Mean Platelet Volume 10.4 fL (9.4-12.4); Platelet Count 313 K/uL (130-400); RDW Coefficient of Variation 13.2 % (11.5-14.5); RDW Standard Deviation 40.8 fL (36.4-46.3); Red Blood Count 4.29 M/uL (4.20-5.40); White Blood Count 9.95 K/ul (4.8-10.8)
[2024-02-14] MEDS: LACTATED RINGER'S 1,000 ML IV SCH (09:30)
[2024-02-14] MEDS: OXYTOCIN 30 UNITS/NSS 30 UNITS/500 ML BAG IV PRN (09:30)
[2024-02-14] MEDS ORDERED: SODIUM CHLORIDE 0.9% PF INJ 10 ML VIAL EPI STA (11:49)
[2024-02-14] MEDS ORDERED: NALBUPHINE HCL INJ 10 MG/ML AMP IV PRN ×2 (11:49→23:01)
[2024-02-14] MEDS ORDERED: BUPIVACAINE 0.25% PF 30 ML VIAL EPI STA (11:49)
[2024-02-14] MEDS ORDERED: ROPIVACAINE 0.5% PF 5 MG/ML 20 ML VIAL EPI PRN (11:49)
[2024-02-14] MEDS ORDERED: SODIUM CHLORIDE 0.9% PF INJ 10 ML VIAL EPI PRN (11:49)
[2024-02-14] MEDS ORDERED: LIDOCAINE 2% MPF LOCAL 5 ML VIAL EPI PRN (11:49)
[2024-02-14] MEDS ORDERED: NALOXONE HCL 0.4 MG/1 ML VIAL/CARP IV PRN ×2 (11:49→23:01)
[2024-02-14] MEDS ORDERED: ePHEDrine sulfate 50 MG/ML AMP IV PRN ×2 (11:49→23:01)
[2024-02-14] MEDS ORDERED: NALOXONE HCL 1 MG in SODIUM CHLORIDE 0.9% 1,000 ML IV PRN ×2 (11:49→23:01)
[2024-02-14] MEDS ORDERED: diphenhydrAMINE 50 MG/ML VIAL IV PRN ×2 (11:49→23:01)
[2024-02-14] MEDS ORDERED: BUPIVACAINE 0.25% PF 30 ML VIAL EPI PRN (11:49)
[2024-02-14] MEDS ORDERED: fentaNYL citrate PF 100 MCG/2 ML VIAL EPI STA (11:49)
[2024-02-14] MEDS ORDERED: LIDOCAINE 2%/EPINEPHRINE 1:200,000 20 ML PF EPI STA (11:49)
[2024-02-14] MEDS ORDERED: fentaNYL citrate PF 100 MCG/2 ML VIAL EPI PRN (11:49)
[2024-02-14] MEDS ORDERED: ONDANSETRON INJ 2 MG/ML 2 ML VIAL IV PRN ×2 (11:49→23:01)
--- NOTE | 2024-02-14 11:49 | Anesthesiology Consultation ---
Date of Service February 14, 2024 Assessment & Plan Chart Review Chart Review: Patient NOT seen in Pre Admission Testing and Acceptable Risk for Labor Epidural Consults Requested none ASA ASA2 Proposed Anesthesia Anesthesia Type: Labor Epidural Risk / Benefits Reviewed With: PT / POA / Parent / Guardian, Accepts Plan and Informed Consent Obtained History Height/Weight Height: 5 ft 2 in Weight: 121.563 kg Allergies Allergy/AdvReac Type Severity Reaction Status Date / Time No Known Allergies Allergy Verified 02/11/24 14:07 Medications Home Medications Medication Instructions Recorded Confirmed Last Taken escitalopram oxalate 20 mg tablet 20 mg PO DAILY #30 tabs 05/07/23 02/11/24 Unknown [id number] PO 07/16/23 02/11/24 Unknown [ Plus] breast pump #1 ea 01/26/24 02/11/24 Unknown Active Medications Generic Name Dose Route Start Last Admin Trade Name Freq PRN Reason Stop Dose Admin Oxytocin 30 units in 500 mls @ 6 mls/hr 02/14/24 08:46 02/14/24 10:30 Pitocin 30 Units/Nss IV 02/16/24 08:45 0.36 units/hr .Q24H PRN 6 mls/hr Labor Induction/Augmentation Titration Protocol 0.36 UNITS/HR Lactated Ringer's 1,000 mls @ 80 mls/hr 02/14/24 09:00 02/14/24 09:30 Lr IV 02/15/24 08:59 50 mls/hr .[id number] KETURAH Administration Past Medical History Medical History demise Encounter for preconception consultation Encounter for assessment Supervision of normal first Velamentous insertion of umbilical cord Measles Varicella vaccine Exercise / Class Metabolic Activity II 4-5 Yardwork/Stairs/Walk up hill Past Family History Family History Grandmother (Maternal) Breast cancer Grandfather (Maternal) Diabetes Stroke H/O heart artery stent Denies family history of Ovarian cancer Colorectal cancer Past Surgical History Surgical History H/O thumb surgery S/P rhinoplasty Past Anesthesia History No Hx of Anesthesia Complications and No Family Hx of Anesthesia Complications History of PONV No Hx of PONV and No Hx of Motion Sickness Social History Smoking Status: Never smoker Do You Dip or Chew Tobacco: No Hx Alcohol Use: No Hx Substance Use: No Physical Exam Vital Signs Last Vital Signs Temp 36.9 C 02/14/24 08:32 Pulse 82 02/14/24 11:47 Resp 18 02/14/24 08:32 BP 112/59 L 02/14/24 11:33 Pulse Ox 99 02/14/24 11:47 ENMT Mouth: no dentition abnormality Thyromental Distance: > or= 3.5 Finger Breadths Mallampati Class: II Neck normal visual inspection Respiratory normal respiratory effort Auscultation: lungs clear to auscultation bilaterally Cardiovascular Rate/Rhythm: regular rate and regular rhythm Psychiatric Orientation: alert Testing Laboratory Results 02/14/24 08:58 Blood Type O Positive 02/14/24 08:58 Antibody Screen NEGATIVE 02/14/24 08:58
[2024-02-14] MEDS: BUPIVACAINE 0.25% PF 30 ML VIAL ONE (12:03)
[2024-02-14] MEDS: LIDOCAINE 2%/EPINEPHRINE 1:200,000 20 ML PF ONE (12:03)
[2024-02-14] MEDS: SODIUM CHLORIDE 0.9% PF INJ 10 ML VIAL ONE (12:03)
[2024-02-14] MEDS: fentANYL 2 MCG/ML BUPIVacaine 0.125%-NSS 100ML BAG ONE (12:03)
[2024-02-14] MEDS: fentaNYL citrate PF 100 MCG/2 ML VIAL ONE (12:04)
--- NOTE | 2024-02-14 19:48 | Communication Note ---
Date of Service: February 14, 2024 Patient being induced for prior demised been busy taking care of other patients as census has been high was able to rupture membranes for 4 cm IUPC has been placed baby's head is been confirmed vertex on ultrasound twice it is in high position baby is thought to be large as well we will try to optimize contractions
[2024-02-14] MEDS: fentANYL 2 MCG/ML BUPIVacaine 0.125%-NSS 100ML BAG EPI PRN (21:10)
--- NOTE | 2024-02-14 22:33 | History & Physical Report ---
Date of Service February 14, 2024 Assessment & Plan (1) Prior with demise, antepartum: Plan: section. The patient was counseled to the nature of the procedure including alternatives such as labor. Risks were discussed including bleeding infection injury to bowel bladder ureter vessels and even baby. Deep Vein thrombosis, pulmonary embolus discussed. Breakdown of incision reviewed. Deep vein thrombosis pulmonary embolus hernia and failure of the incision to heal were discussed Patient verbalized understanding of this and was given ample time to ask questions Note we had a lengthy discussion over the day and also over the last half hour but the current situation her contractions are adequate on IUPC and she is still 4 cm thick and high the head is almost ballotable we reviewed the weight of her stillborn which was 6 pounds 13 ounces this baby is to a over 8-1/2 pounds I discussed that there may be a dystocia issue apply by the guidelines we should continue augmentation of labor however with no change Chen is somewhat concerned about proceeding forward and I agree I am somewhat concerned about the size of this baby in the progress is also an emotional moment as her last was obviously a very upsetting situation. I offered the patient section this would be technically for failed induction at this stage and somewhat elective however water is broken this cannot wait till the morning would recommend that we do this now Ancef and azithromycin. I discussed that again we could continue to induce with labor the patient and her strongly wish to proceed to and I will respect their decision Admission and Anticipated Discharge Date Admission Date: February 14, 2024 History of Present Illness Primary Care Provider: Leonora Suresh DO Visit ALBERTA Calculator Estimated Delivery Date Method Current WG Current Estimate 02/29/24 LMP (Certain) 37w 3d Other Estimates 03/01/24 Ultrasound #1 37w 2d LMP: 04/29/23 : 3 Full term: 1 Premature: 0 Total Number of Induced Abortions: 0 Total Number of Spontaneous Abortions: 1 Ectopics: 0 Multiple births: 0 Number of Living Children: 0 and Delivery Plans Prior IUFD at 37 weeks MFM ( (08/27/23 @ [facility] [place]) testing 32 weeks (2x weekly NSTs) Growth U/S 28 weeks Induction Feb 13 Allergies Allergy/AdvReac Type Severity Reaction Status Date / Time No Known Allergies Allergy Verified 02/11/24 14:07 Home Medications Medication Instructions Recorded Confirmed Type escitalopram oxalate 20 mg tablet 20 mg PO DAILY #30 tabs 05/07/23 02/11/24 Rx [id number] PO 07/16/23 02/11/24 History [ Plus] breast pump #1 ea 01/26/24 02/11/24 Rx Patient History Medical History demise Encounter for preconception consultation Encounter for assessment Supervision of normal first Velamentous insertion of umbilical cord Measles Varicella vaccine Surgical History H/O thumb surgery S/P rhinoplasty Family History Grandmother (Maternal) Breast cancer Grandfather (Maternal) Diabetes Stroke H/O heart artery stent Denies family history of Ovarian cancer Colorectal cancer Social History Smoking Status: Never smoker Second Hand Exposure: No; Do You Dip or Chew Tobacco: No; Tobacco Cessation Education Requested by Patient: No Hx Alcohol Use: No Hx Substance Use: No Preferred Language: Argentine Communication Ability: Effective Supervisor Conditioning Yard Required: No Beliefs That Will Affect Care: None marital status: marital status details: Cesar Mason (33) [phone] Current Living Situation: Spouse Current Living Situation Comment: [place]- current occupational status: employed current occupation: [employer] Other Information That Helps Us Care for You: No Feels Safe at Home: Yes Safety Concerns: Feels Safe At This Time Assistive Devices: None Physical Exam Constitutional: WD/WN, vitals as above well developed and well nourished Respiratory: normal respiratory effort, lungs clear to auscultation normal respiratory effort Cardiovascular: RRR, no murmur, no edema Gastrointestinal (Abdomen): normal bowel sounds, soft, nontender, no hepatosplenomegaly Results & Data Vital Signs (Past 12 Hours) Vital Signs Temp Pulse Resp BP Pulse Ox 02/14/24 22:27 101 H 99 02/14/24 22:22 94 H 99 02/14/24 22:18 95 H 120/70 02/14/24 22:17 96 H 100 02/14/24 22:16 104 H 92 02/14/24 22:12 74 97 02/14/24 22:07 85 98 02/14/24 22:03 80 95/53 L 02/14/24 22:02 84 97 02/14/24 22:00 18 02/14/24 22:00 18 02/14/24 21:57 77 97 02/14/24 21:52 81 98 02/14/24 21:47 71 92/53 L 98 02/14/24 21:42 77 99 02/14/24 21:37 75 99 02/14/24 21:33 77 97/49 L 02/14/24 21:32 74 99 02/14/24 21:30 18 02/14/24 21:30 18 02/14/24 21:27 80 99 02/14/24 21:22 73 97 02/14/24 21:17 72 91/53 L 99 02/14/24 21:12 78 99 02/14/24 21:07 69 98 02/14/24 21:03 80 95/46 L 02/14/24 21:02 76 99 02/14/24 21:00 18 02/14/24 21:00 98.1 F 18 02/14/24 20:57 79 99 02/14/24 20:52 76 97 02/14/24 20:51 68 100/58 L 02/14/24 20:47 73 98 02/14/24 20:42 76 100 02/14/24 20:37 76 99 02/14/24 20:32 78 111/64 98 02/14/24 20:27 70 98 02/14/24 20:22 73 98 02/14/24 20:19 73 110/57 L 02/14/24 20:17 79 99 02/14/24 20:12 75 98 02/14/24 20:07 72 99 02/14/24 20:02 80 02/14/24 20:02 73 131/58 L 98 02/14/24 19:57 74 98 02/14/24 19:52 85 97 02/14/24 19:47 80 99 02/14/24 19:42 66 99 02/14/24 19:37 84 99 02/14/24 19:32 76 121/65 99 02/14/24 19:30 18 02/14/24 19:30 18 02/14/24 19:27 73 98 02/14/24 19:22 70 98 02/14/24 19:19 75 117/63 02/14/24 19:17 80 98 02/14/24 19:12 98.2 F 18 02/14/24 19:12 75 98 02/14/24 19:07 85 98 02/14/24 19:04 93 H 94 02/14/24 19:02 86 116/61 98 02/14/24 19:00 16 02/14/24 19:00 16 02/14/24 18:57 83 97 02/14/24 18:56 77 92 02/14/24 18:52 84 98 02/14/24 18:47 84 111/60 94 02/14/24 18:42 81 99 02/14/24 18:37 79 98 02/14/24 18:34 81 120/72 02/14/24 18:32 78 98 02/14/24 18:30 16 02/14/24 18:30 16 02/14/24 18:27 78 97 02/14/24 18:22 77 100 02/14/24 18:18 78 102/59 L 02/14/24 18:17 75 97 02/14/24 18:12 80 98 02/14/24 18:07 82 98 02/14/24 18:03 80 111/55 L 02/14/24 18:02 76 99 02/14/24 18:00 18 02/14/24 18:00 18 02/14/24 17:57 82 97 02/14/24 17:52 85 97 02/14/24 17:49 78 109/63 02/14/24 17:47 87 99 02/14/24 17:46 89 82 L 02/14/24 17:45 98.4 F 02/14/24 17:42 102 H 98 02/14/24 17:37 85 99 02/14/24 17:34 76 110/57 L 02/14/24 17:32 86 98 02/14/24 17:30 16 02/14/24 17:30 16 02/14/24 17:27 80 99 02/14/24 17:22 77 99 02/14/24 17:18 79 105/67 02/14/24 17:17 76 99 02/14/24 17:12 75 99 11/18/24 17:07 75 98 02/14/24 17:02 82 99 02/14/24 17:00 16 02/14/24 17:00 16 02/14/24 16:57 81 99 02/14/24 16:52 78 98 02/14/24 16:47 153 H 02/14/24 16:47 78 119/57 L 97 02/14/24 16:42 80 98 02/14/24 16:37 77 99 02/14/24 16:32 83 97 02/14/24 16:30 16 02/14/24 16:30 16 02/14/24 16:27 82 98 02/14/24 16:22 79 98 02/14/24 16:18 75 108/56 L 02/14/24 16:17 81 100 02/14/24 16:12 77 100 02/14/24 16:07 76 97 02/14/24 16:04 74 110/64 02/14/24 16:02 88 98 02/14/24 16:00 16 02/14/24 16:00 98.1 F 16 02/14/24 15:57 75 98 02/14/24 15:52 92 H 98 02/14/24 15:48 75 108/58 L 02/14/24 15:47 76 98 02/14/24 15:42 72 99 02/14/24 15:37 72 98 02/14/24 15:34 68 105/56 L 02/14/24 15:32 67 100 02/14/24 15:30 16 02/14/24 15:30 16 02/14/24 15:27 71 99 02/14/24 15:22 77 99 02/14/24 15:17 88 107/56 L 99 02/14/24 15:12 75 100 02/14/24 15:07 84 99 02/14/24 15:02 76 106/56 L 99 02/14/24 14:57 74 100 02/14/24 14:52 75 100 02/14/24 14:49 68 107/55 L 02/14/24 14:47 72 100 02/14/24 14:42 70 100 02/14/24 14:37 69 100 02/14/24 14:32 65 100 02/14/24 14:30 16 02/14/24 14:30 16 02/14/24 14:27 79 100 02/14/24 14:22 75 100 02/14/24 14:21 71 98/53 L 02/14/24 14:17 82 100 02/14/24 14:15 75 93 02/14/24 14:12 79 99 02/14/24 14:07 64 98 02/14/24 14:02 69 02/14/24 14:02 72 107/62 98 02/14/24 13:57 69 97 02/14/24 13:56 66 91 02/14/24 13:52 67 97 02/14/24 13:48 67 107/59 L 02/14/24 13:47 67 98 02/14/24 13:42 63 98 02/14/24 13:37 62 98 02/14/24 13:32 69 02/14/24 13:32 65 101/58 L 96 02/14/24 13:30 16 02/14/24 13:30 16 02/14/24 13:27 66 97 02/14/24 13:22 62 98 02/14/24 13:17 64 109/65 99 02/14/24 13:12 70 98 02/14/24 13:07 68 99 02/14/24 13:03 64 113/66 02/14/24 13:02 63 97 02/14/24 13:00 18 02/14/24 13:00 18 02/14/24 12:57 63 97 02/14/24 12:55 63 94 02/14/24 12:52 64 96 02/14/24 12:48 68 101/50 L 02/14/24 12:47 71 98 02/14/24 12:42 69 97 02/14/24 12:37 68 109/66 99 02/14/24 12:34 67 84/53 L 02/14/24 12:32 62 97 02/14/24 12:30 16 02/14/24 12:30 16 02/14/24 12:27 61 97 02/14/24 12:22 61 98 02/14/24 12:20 18 02/14/24 12:20 18 02/14/24 12:17 75 98 02/14/24 12:16 73 98/52 L 02/14/24 12:15 18 02/14/24 12:15 18 02/14/24 12:14 81 92/55 L 02/14/24 12:12 107 H 93/52 L 98 02/14/24 12:11 96 H 18 104/54 L 02/14/24 12:07 97 H 02/14/24 12:07 84 105/54 L 99 02/14/24 12:06 16 02/14/24 12:06 16 02/14/24 12:04 83 110/59 L 02/14/24 12:03 16 02/14/24 12:03 16 02/14/24 12:02 88 97 02/14/24 11:57 82 98 02/14/24 11:52 84 99 02/14/24 11:49 77 116/58 L 02/14/24 11:47 82 99 02/14/24 11:45 18 02/14/24 11:45 98.1 F 18 02/14/24 11:42 76 98 02/14/24 11:37 79 97 02/14/24 11:33 72 112/59 L 02/14/24 11:32 76 98 02/14/24 11:27 75 98 02/14/24 11:23 74 141/59 H 02/14/24 11:22 80 98 Coding Level of Care Code None Diagnoses Prior with demise, antepartum O09.299
[2024-02-14] MEDS: ceFAZolin 3000MG 3,000 MG/72.5 ML BAG IV STA (22:51)
[2024-02-14] MEDS: ePHEDrine sulfate 50 MG/ML AMP ONE (22:52)
[2024-02-14] MEDS ORDERED: MoRPHine SULFATE PF 1 MG/ML 10 ML AMP/VIAL INT SPINAL ONE (23:01)
[2024-02-14] MEDS ORDERED: MoRPHine SULFATE 2 MG/ML CARP IV PRN (23:01)
[2024-02-14] MEDS ORDERED: MEPERIDINE HCL 25 MG/ML CARP/VIAL IV PRN (23:01)
[2024-02-14] MEDS ORDERED: NALOXONE HCL 0.08 MG in SYRINGE 1.8 ML IV PRN (23:01)
[2024-02-14] MEDS ORDERED: oxyCODONE HCL IR 5 MG TAB (IMMEDIATE RELEASE) PO PRN (23:01)
[2024-02-14] MEDS ORDERED: PROMETHAZINE 6.25 MG/50.25 ML BAG IV PRN (23:01)
[2024-02-14] MEDS ORDERED: HYDROmorphone INJ 0.5 MG/0.5 ML SYR IV PRN (23:01)
--- NOTE | 2024-02-14 23:01 | Communication Note ---
Date of Service: February 14, 2024 c section called by OB for arrest of labor. epidural working well, will use her epidural for surgical anesthetic. all questions answered and patient agrees to proceed under epidural anesthetic.
[2024-02-14] MEDS ORDERED: NO NARCOTICS OR SEDATIVES SCH (23:15)
[2024-02-14] MEDS ORDERED: DC INTRASPINAL MORPHINE SCH (23:15)
[2024-02-14] MEDS: AZITHROMYCIN 500 MG in SODIUM CHLORIDE 0.9% 250 ML IV STA (23:20)
[2024-02-14] MEDS ORDERED: MoRPHine SULFATE PF 1 MG/ML 10 ML AMP/VIAL ONE (23:24)
[2024-02-14] MEDS ORDERED: KETOROLAC 30 MG/ML VIAL ONE (23:47)
[2024-02-14] MEDS ORDERED: PHENYLEPHRINE 100MCG/ML 5ML SYR ONE (23:47)
[2024-02-14] MEDS ORDERED: OXYTOCIN 10 UNITS/ML VIAL ONE (23:47)
[2024-02-14] MEDS ORDERED: ONDANSETRON INJ 2 MG/ML 2 ML VIAL ONE (23:48)
--- NOTE | 2024-02-15 00:09 | Operative Report ---
Post Operative Report Pre & Post Diagnosis Operation Date: 02/14/24 23:00 Pre-Op Diagnosis: failure to progress I identified the patient and participated in the time-out.: Yes Procedure Operation Date: 02/14/24 23:00 Low transverse section Surgeon Bhavesh Ríos MD, FACOG Installer Apprentice Dr. Dyer Quantitative Blood Loss (QBL) 510 Findings Consistent with Post-Op Diagnosis Specimens cord gases, blood Description of Procedure Regional anesthetic had been given by anesthesia patient was prepped and draped with a leftward tilt preoperative antibiotics had been given in appropriate timing by anesthesiology. Once the prep was allowed to fully dry timeout was performed. Pickups with teeth were used to test the incision area was found to be adequate for incision as the patient did not feel sharp pain. Scalpel was used to make a Pfannenstiel incision on the lower abdomen. We then cut through the subcutaneous fat down to the level of the anterior rectus sheath fascia this was cut in the midline and then extended laterally with the curved Carlton scissors. At this stage we then placed 2 Soo clamps on the anterior aspect of the fascia. Using the curved Carlton's we are able to dissect the fascia superiorly away from the rectus muscles. Care was taken to maintain hemostasis. Soo clamps were then placed to the inferior aspect of the anterior sheath of the fascia. Fascia was then dissected away from the rectus muscles inferiorly towards the pubic bone. A Soo was then placed in the midline both inferiorly and superiorly. This was to allow exposure by retraction rectus muscles were in the midline with were then able to cut through the peritoneum and then enter the peritoneal cavity. Opening was enlarged to allow exposure of the peritoneal cavity both superiorly and inferiorly. Once adequate space was obtained a bladder retractor was placed to expose the lower segment Metzenbaums were used to dissect the bladder flap inferiorly away from the uterus. This was done sharply bladder retractor was then repositioned to expose the lower segment of the uterus Fresh scalpel was used to make a low transverse incision on the uterus. Uterus was then entered bluntly with the operators finger, membranes ruptured and the opening was enlarged using the operators fingers bluntly pulling superiorly and inferiorly to allow exposure. Baby was delivered by first attempted flexion of the head elevation of the head out of the pelvis, however I was unsuccessful we did try to place a Kiwi vacuum and after 1 pull the head came further at this stage the vacuum popped off and then we were able to deliver the baby's head with maternal abdomen pressure from the daycare assistant and then pressure by the daycare assistant on the maternal abdomen. Baby's head was then delivered mouth and then nares were suctioned and then using gentle traction the baby was fully delivered. Live vigorous infant. Fluid was clear cord clamped and cut cord gases obtained cord blood obtained baby handed to pediatrics. Placenta removed was removed with traction we ensure the entire placenta was removed with a moist lap sponge into the uterus. Loose nuchal cord x 1 Uterus was then exteriorized. IV Pitocin had been started by anesthesia tone improved there were no extensions the uterus was then closed using 0 Monocryl in a 2 layer closure the first layer closed in a running locked fashion from left to right and then a second closure from left to right in a running nonlocked fashion. At this stage hemostasis was excellent. Uterus was placed back in the peritoneal cavity with suction irrigation out and inspection of the uterus at this stage revealed excellent hemostasis should be noted that we ensured all placenta removed and the uterine tone was poor initially Hemabate was directed directly intramuscular to the uterus taking care to avoid intravascular injection Retractors were removed urine color was clear at this stage of the case we inspected the rectus muscles they were hemostatic fascia was closed with 0 Vicryl subcutaneous fat was irrigated and closed with 3-0 Vicryl skin closed with 4-0 subcuticular Monocryl Uterus adnexa were normal urine was clear at the end the procedure I attest to the content of the Intraoperative Record and any orders documented therein. Any exceptions are noted below. OB Procedure Charges 00461
--- NOTE | 2024-02-15 00:19 | Anesthesia Procedure Note ---
Date of Service February 15, 2024 Anesthesia Post Epidural Note Vital Signs Vital Signs: Temp Pulse Resp BP Pulse Ox 36.7 C 64 18 95/47 L 96 02/14/24 21:00 02/15/24 00:17 02/14/24 22:30 02/15/24 00:15 02/15/24 00:17 Notes Mental Status: alert / awake / arousable Nausea / Vomiting: adequately controlled Pain: adequately controlled Airway Patency, RR, SpO2: stable & adequate BP & HR: stable & adequate Hydration State: stable & adequate Neuraxial Anesthesia: was administered and sensory block is resolving Anesthetic Complications: no major complications apparent and Pt Satisfied with anesthetic care Epidural: Removed without complications and With tip intact
--- NOTE | 2024-02-15 00:19 | Anesthesiology Progress Note ---
Date of Service February 15, 2024 Anesthesia Post Procedure Vital Signs Vital Signs: Temp Pulse Resp BP Pulse Ox 02/15/24 00:17 64 96 02/15/24 00:15 63 95/47 L 02/15/24 00:13 63 66/34 L 02/15/24 00:12 63 66/31 L 94 02/14/24 23:03 102 H 115/59 L 02/14/24 23:02 106 H 98 02/14/24 22:57 100 H 99 02/14/24 22:52 99 H 98 02/14/24 22:47 118 H 98 02/14/24 22:42 122 H 91 02/14/24 22:37 91 02/14/24 22:37 122 H 02/14/24 22:37 104 H 98 02/14/24 22:32 111 H 99 02/14/24 22:30 18 02/14/24 22:30 18 02/14/24 22:27 101 H 99 02/14/24 22:22 94 H 99 02/14/24 22:18 95 H 120/70 02/14/24 22:17 96 H 100 02/14/24 22:16 104 H 92 02/14/24 22:12 74 97 02/14/24 22:07 85 98 02/14/24 22:03 80 95/53 L 02/14/24 22:02 84 97 02/14/24 22:00 18 02/14/24 22:00 18 02/14/24 21:57 77 97 02/14/24 21:52 81 98 02/14/24 21:47 71 92/53 L 98 02/14/24 21:42 77 99 02/14/24 21:37 75 99 02/14/24 21:33 77 97/49 L 02/14/24 21:32 74 99 02/14/24 21:30 18 02/14/24 21:30 18 02/14/24 21:27 80 99 02/14/24 21:22 73 97 02/14/24 21:17 72 91/53 L 99 02/14/24 21:12 78 99 02/14/24 21:07 69 98 02/14/24 21:03 80 95/46 L 02/14/24 21:02 76 99 02/14/24 21:00 18 02/14/24 21:00 36.7 C 18 02/14/24 20:57 79 99 02/14/24 20:52 76 97 02/14/24 20:51 68 100/58 L 02/14/24 20:47 73 98 02/14/24 20:42 76 100 02/14/24 20:37 76 99 02/14/24 20:32 78 111/64 98 02/14/24 20:27 70 98 02/14/24 20:22 73 98 02/14/24 20:19 73 110/57 L 02/14/24 20:17 79 99 02/14/24 20:12 75 98 02/14/24 20:07 72 99 02/14/24 20:02 80 02/14/24 20:02 73 131/58 L 98 02/14/24 19:57 74 98 02/14/24 19:52 85 97 02/14/24 19:47 80 99 02/14/24 19:42 66 99 02/14/24 19:37 84 99 02/14/24 19:32 76 121/65 99 02/14/24 19:30 18 02/14/24 19:30 18 02/14/24 19:27 73 98 02/14/24 19:22 70 98 02/14/24 19:19 75 117/63 02/14/24 19:17 80 98 02/14/24 19:12 36.8 C 18 02/14/24 19:12 75 98 02/14/24 19:07 85 98 02/14/24 19:04 93 H 94 02/14/24 19:02 86 116/61 98 02/14/24 19:00 16 02/14/24 19:00 16 02/14/24 18:57 83 97 02/14/24 18:56 77 92 02/14/24 18:52 84 98 02/14/24 18:47 84 111/60 94 02/14/24 18:42 81 99 02/14/24 18:37 79 98 02/14/24 18:34 81 120/72 02/14/24 18:32 78 98 02/14/24 18:30 16 02/14/24 18:30 16 02/14/24 18:27 78 97 02/14/24 18:22 77 100 11/18/24 18:18 78 102/59 L 02/14/24 18:17 75 97 02/14/24 18:12 80 98 02/14/24 18:07 82 98 02/14/24 18:03 80 111/55 L 02/14/24 18:02 76 99 02/14/24 18:00 18 02/14/24 18:00 18 02/14/24 17:57 82 97 02/14/24 17:52 85 97 02/14/24 17:49 78 109/63 02/14/24 17:47 87 99 02/14/24 17:46 89 82 L 02/14/24 17:45 36.9 C 02/14/24 17:42 102 H 98 02/14/24 17:37 85 99 02/14/24 17:34 76 110/57 L 02/14/24 17:32 86 98 02/14/24 17:30 16 02/14/24 17:30 16 02/14/24 17:27 80 99 02/14/24 17:22 77 99 02/14/24 17:18 79 105/67 02/14/24 17:17 76 99 02/14/24 17:12 75 99 02/14/24 17:07 75 98 02/14/24 17:02 82 99 02/14/24 17:00 16 02/14/24 17:00 16 02/14/24 16:57 81 99 02/14/24 16:52 78 98 02/14/24 16:47 153 H 02/14/24 16:47 78 119/57 L 97 02/14/24 16:42 80 98 02/14/24 16:37 77 99 02/14/24 16:32 83 97 02/14/24 16:30 16 02/14/24 16:30 16 02/14/24 16:27 82 98 02/14/24 16:22 79 98 02/14/24 16:18 75 108/56 L 02/14/24 16:17 81 100 02/14/24 16:12 77 100 02/14/24 16:07 76 97 02/14/24 16:04 74 110/64 02/14/24 16:02 88 98 02/14/24 16:00 16 02/14/24 16:00 36.7 C 16 02/14/24 15:57 75 98 02/14/24 15:52 92 H 98 02/14/24 15:48 75 108/58 L 02/14/24 15:47 76 98 02/14/24 15:42 72 99 02/14/24 15:37 72 98 02/14/24 15:34 68 105/56 L 02/14/24 15:32 67 100 02/14/24 15:30 16 02/14/24 15:30 16 02/14/24 15:27 71 99 02/14/24 15:22 77 99 02/14/24 15:17 88 107/56 L 99 02/14/24 15:12 75 100 02/14/24 15:07 84 99 02/14/24 15:02 76 106/56 L 99 02/14/24 14:57 74 100 02/14/24 14:52 75 100 02/14/24 14:49 68 107/55 L 02/14/24 14:47 72 100 02/14/24 14:42 70 100 02/14/24 14:37 69 100 02/14/24 14:32 65 100 02/14/24 14:30 16 02/14/24 14:30 16 02/14/24 14:27 79 100 02/14/24 14:22 75 100 02/14/24 14:21 71 98/53 L 02/14/24 14:17 82 100 02/14/24 14:15 75 93 02/14/24 14:12 79 99 02/14/24 14:07 64 98 02/14/24 14:02 69 02/14/24 14:02 72 107/62 98 02/14/24 13:57 69 97 02/14/24 13:56 66 91 02/14/24 13:52 67 97 02/14/24 13:48 67 107/59 L 02/14/24 13:47 67 98 02/14/24 13:42 63 98 02/14/24 13:37 62 98 02/14/24 13:32 69 02/14/24 13:32 65 101/58 L 96 02/14/24 13:30 16 02/14/24 13:30 16 02/14/24 13:27 66 97 02/14/24 13:22 62 98 02/14/24 13:17 64 109/65 99 02/14/24 13:12 70 98 02/14/24 13:07 68 99 02/14/24 13:03 64 113/66 02/14/24 13:02 63 97 02/14/24 13:00 18 02/14/24 13:00 18 02/14/24 12:57 63 97 02/14/24 12:55 63 94 02/14/24 12:52 64 96 02/14/24 12:48 68 101/50 L 02/14/24 12:47 71 98 02/14/24 12:42 69 97 02/14/24 12:37 68 109/66 99 02/14/24 12:34 67 84/53 L 02/14/24 12:32 62 97 02/14/24 12:30 16 02/14/24 12:30 16 02/14/24 12:27 61 97 02/14/24 12:22 61 98 02/14/24 12:20 18 02/14/24 12:20 18 02/14/24 12:17 75 98 02/14/24 12:16 73 98/52 L 02/14/24 12:15 18 02/14/24 12:15 18 02/14/24 12:14 81 92/55 L 02/14/24 12:12 107 H 93/52 L 98 02/14/24 12:11 96 H 18 104/54 L 02/14/24 12:07 97 H 02/14/24 12:07 84 105/54 L 99 02/14/24 12:06 16 02/14/24 12:06 16 02/14/24 12:04 83 110/59 L 02/14/24 12:03 16 02/14/24 12:03 16 02/14/24 12:02 88 97 02/14/24 11:57 82 98 02/14/24 11:52 84 99 02/14/24 11:49 77 116/58 L 02/14/24 11:47 82 99 02/14/24 11:45 18 02/14/24 11:45 36.7 C 18 02/14/24 11:42 76 98 02/14/24 11:37 79 97 02/14/24 11:33 72 112/59 L 02/14/24 11:32 76 98 02/14/24 11:27 75 98 02/14/24 11:23 74 141/59 H 02/14/24 11:22 80 98 02/14/24 08:59 85 117/58 L 02/14/24 08:32 36.9 C 85 18 117/58 L Transfer of Care Handoff Completed per policy Notes Mental Status: alert / awake / arousable Nausea / Vomiting: adequately controlled Pain: adequately controlled Airway Patency, RR, SpO2: stable & adequate BP & HR: stable & adequate Hydration State: stable & adequate Anesthetic Complications: no major complications apparent
[2024-02-15 00:56] LABS: Base Excess Cord Arterial Bld -6.9 mEq/L (-9-1.8); Base Excess Cord Venous Blood -2.7 mEq/L (-7.7-1.9); CO2 Cord Arterial Blood 76 mmHg (39.1-73.5); Cord Venous Blood HCO3 25 mmol/L (18.4-26.8); Cord Venous Blood PCO2 51 mmHg (30.4-57.2); Cord Venous Blood PO2 < 20 mmHg (14.1-43.3); Cord Venous Blood pH 7.29 (7.20-7.44); HCO3 Cord Arterial Blood 24 mmol/L (19.7-28.5); O2 Saturation Cord Venous Bld < 60.0 % (<68); Oxygen Sat Cord Arterial Blood < 60.0 % (<60); PO2 Cord Arterial Blood 20 mmHg (4.1-31.7); pH Cord Arterial Blood 7.11 (7.1-7.38)
[2024-02-15] MEDS: CARBOPROST TROMETHAMINE 250 MCG/ML AMPUL IM ONE (01:03)
[2024-02-15] MEDS ORDERED: HYDROCORTISONE ACETATE 25 MG SUPP PR PRN (01:22)
[2024-02-15] MEDS ORDERED: BENZOCAINE 20% SPRY 85 APPLN/85 GM CAN EXT PRN (01:22)
[2024-02-15] MEDS ORDERED: CALCIUM CARBONATE 500 MG CHEWABLE TAB PO PRN (01:22)
[2024-02-15] MEDS ORDERED: OXYTOCIN 20 UNITS/LR 1,002 ML IV SCH (01:22)
[2024-02-15] MEDS ORDERED: MAGNESIUM HYDROXIDE SUSP 30 ML UDC PO PRN (01:22)
[2024-02-15] MEDS ORDERED: LACTATED RINGER'S 1,000 ML IV SCH (01:22)
[2024-02-15] MEDS ORDERED: SENNA 8.6 MG TAB PO PRN (01:22)
[2024-02-15] MEDS ORDERED: SODIUM CHLORIDE 0.9% 50 ML IV PRN (03:07)
[2024-02-15] MEDS ORDERED: SODIUM CHLORIDE 0.9% 100 ML IV PRN (03:07)
[2024-02-15] MEDS: DIPHTHER/TETAN/PERTUS Vaccine (Tdap, Adol/Adult) 0.5mL IM ONE (03:32)
[2024-02-15] MEDS: KETOROLAC 30 MG/ML VIAL IV SCH (06:25)
--- NOTE | 2024-02-15 06:49 | Obstetrical Progress Note ---
Date of Service <Gerhard Longo MD - Last Filed: 02/15/24 07:34> February 15, 2024 Assessment & Plan <Gerhard Longo MD - Last Filed: 02/15/24 07:34> (1) Prior with demise, antepartum: (2) Encounter for supervision of normal intrauterine in multigravida, antepartum: (3) care and examination: Plan POD#1 s/p CS at term: Stable. Rh+, gbs -, ri, vitals wnl Continue routine care, continue OOB and ambulation Progress diet as tolerated, work on bowel & bladder fxn DC tomorrow or <Bhavesh Ríos MD, FACOG - Last Filed: 02/15/24 07:38> (1) Prior with demise, antepartum: Resident Physician Supervision Note: I interviewed and examined the patient. Discussed with Dr. Longo and agree with findings and plan as documented in the note. Any exceptions or clarifications are listed here: [None] Documented By: hBavesh Ríos MD, FACOG (2) Encounter for supervision of normal intrauterine in multigravida, antepartum: (3) care and examination: Subjective <Gerhard Longo MD - Last Filed: 02/15/24 07:34> Chen is a 33 y/o female who is POD#1 following delivery at 38 weeks d/t FTP. Reports abd pain/cramping, mostly around incision when getting up Just had hollis removed Has not tried eating No BMs, not yet passing gas Is ambulating w/o issues Having appropriate lochia Planning for exclusive . Constitutional: no fever, no chills or no sweats Respiratory: no dyspnea Cardiovascular: no chest pain, no palpitations or no calf pain Breast: no breast pain Gastrointestinal: no nausea or no vomiting Genitourinary (female): no dysuria Neurologic: no headache(s) no changes in vision, no headaches Physical Exam <Gerhard Longo MD - Last Filed: 02/15/24 07:34> General: Alert, oriented. No acute distress. Cardiac: Regular rate and rhythm, no murmurs, rubs, or gallops. Respiratory: Clear to auscultation bilaterally. No increased work of breathing. Symmetrical chest rise. No respiratory distress. Abdomen: Soft, nontender, nondistended. Bowel sounds present. Uterus: Uterine fundus firm, nontender. Surgical dressing c/d/i Lower extremities: No lower extremity edema or swelling. No deep calf pain. Results & Data <Gerhard Longo MD - Last Filed: 02/15/24 07:34> Vital Signs (Past 12 Hours) Vital Signs Temp Pulse Pulse Resp BP BP Pulse Ox 02/15/24 05:48 18 94 02/15/24 04:33 18 94 02/15/24 03:15 18 95 02/15/24 03:15 02/15/24 03:15 36.6 C 88 18 123/75 95 02/15/24 02:28 87 94 02/15/24 02:27 84 95 02/15/24 02:22 93 H 142/67 H 96 02/15/24 02:17 85 94 02/15/24 02:16 76 94 02/15/24 02:13 78 143/64 H 02/15/24 02:12 36.9 C 18 02/15/24 02:12 88 94 02/15/24 02:11 88 94 02/15/24 02:07 82 95 02/15/24 02:05 84 93 02/15/24 02:02 86 96 02/15/24 01:59 84 93 02/15/24 01:57 76 99 02/15/24 01:53 77 127/59 L 02/15/24 01:52 78 92 02/15/24 01:50 80 90 02/15/24 01:47 93 H 94 02/15/24 01:45 77 93 02/15/24 01:43 89 131/67 02/15/24 01:42 18 02/15/24 01:42 82 99 02/15/24 01:40 86 93 02/15/24 01:37 84 93 02/15/24 01:32 72 116/57 L 94 02/15/24 01:31 79 93 02/15/24 01:27 80 93 02/15/24 01:25 86 94 02/15/24 01:22 68 106/55 L 94 02/15/24 01:20 70 92 02/15/24 01:17 73 95 02/15/24 01:14 79 94 02/15/24 01:13 75 108/75 02/15/24 01:12 36.7 C 18 02/15/24 01:12 73 94 02/15/24 01:09 73 93 02/15/24 01:07 73 96 02/15/24 01:03 75 108/74 02/15/24 01:02 18 02/15/24 01:02 76 88 L 02/15/24 01:00 67 94 02/15/24 00:57 66 94 02/15/24 00:53 63 94 02/15/24 00:52 18 02/15/24 00:52 67 80/54 L 95 02/15/24 00:47 72 95 02/15/24 00:42 18 02/15/24 00:42 63 84/51 L 97 02/15/24 00:37 62 96 02/15/24 00:32 18 02/15/24 00:32 59 L 84/46 L 95 02/15/24 00:29 62 95/45 L 02/15/24 00:28 68 86 L 02/15/24 00:27 72 96 02/15/24 00:22 18 02/15/24 00:22 72 70 L 02/15/24 00:18 63 94 02/15/24 00:17 64 96 02/15/24 00:15 63 95/47 L 02/15/24 00:13 63 66/34 L 02/15/24 00:12 36.8 C 18 02/15/24 00:12 63 66/31 L 94 02/14/24 23:03 102 H 115/59 L 02/14/24 23:02 106 H 98 02/14/24 22:57 100 H 99 02/14/24 22:52 99 H 98 02/14/24 22:47 118 H 98 02/14/24 22:42 122 H 91 02/14/24 22:37 91 02/14/24 22:37 122 H 02/14/24 22:37 104 H 98 02/14/24 22:32 111 H 99 02/14/24 22:30 18 02/14/24 22:30 18 02/14/24 22:27 101 H 99 02/14/24 22:22 94 H 99 11/18/24 22:18 95 H 120/70 11/18/24 22:17 96 H 100 02/14/24 22:16 104 H 92 02/14/24 22:12 74 97 02/14/24 22:07 85 98 02/14/24 22:03 80 95/53 L 02/14/24 22:02 84 97 02/14/24 22:00 18 02/14/24 22:00 18 02/14/24 21:57 77 97 02/14/24 21:52 81 98 02/14/24 21:47 71 92/53 L 98 02/14/24 21:42 77 99 02/14/24 21:37 75 99 02/14/24 21:33 77 97/49 L 02/14/24 21:32 74 99 02/14/24 21:30 18 02/14/24 21:30 18 02/14/24 21:27 80 99 02/14/24 21:22 73 97 02/14/24 21:17 72 91/53 L 99 02/14/24 21:12 78 99 02/14/24 21:07 69 98 02/14/24 21:03 80 95/46 L 02/14/24 21:02 76 99 02/14/24 21:00 18 02/14/24 21:00 36.7 C 18 02/14/24 20:57 79 99 02/14/24 20:52 76 97 02/14/24 20:51 68 100/58 L 02/14/24 20:47 73 98 02/14/24 20:42 76 100 02/14/24 20:37 76 99 02/14/24 20:32 78 111/64 98 02/14/24 20:27 70 98 02/14/24 20:22 73 98 02/14/24 20:19 73 110/57 L 02/14/24 20:17 79 99 02/14/24 20:12 75 98 02/14/24 20:07 72 99 02/14/24 20:02 80 02/14/24 20:02 73 131/58 L 98 02/14/24 19:57 74 98 02/14/24 19:52 85 97 02/14/24 19:47 80 99 02/14/24 19:42 66 99 02/14/24 19:37 84 99 02/14/24 19:32 76 121/65 99 02/14/24 19:30 18 02/14/24 19:30 18 02/14/24 19:27 73 98 02/14/24 19:22 70 98 02/14/24 19:19 75 117/63 02/14/24 19:17 80 98 02/14/24 19:12 36.8 C 18 02/14/24 19:12 75 98 02/14/24 19:07 85 98 02/14/24 19:04 93 H 94 02/14/24 19:02 86 116/61 98 02/14/24 19:00 16 02/14/24 19:00 16 02/14/24 18:57 83 97 02/14/24 18:56 77 92 02/14/24 18:52 84 98 02/14/24 18:47 84 111/60 94 O2 Del Method 02/15/24 05:48 02/15/24 04:33 02/15/24 03:15 02/15/24 03:15 Room Air 02/15/24 03:15 Room Air 02/15/24 02:28 02/15/24 02:27 02/15/24 02:22 02/15/24 02:17 02/15/24 02:16 02/15/24 02:13 02/15/24 02:12 02/15/24 02:12 02/15/24 02:11 02/15/24 02:07 02/15/24 02:05 02/15/24 02:02 02/15/24 01:59 02/15/24 01:57 02/15/24 01:53 02/15/24 01:52 02/15/24 01:50 02/15/24 01:47 02/15/24 01:45 02/15/24 01:43 02/15/24 01:42 02/15/24 01:42 02/15/24 01:40 02/15/24 01:37 02/15/24 01:32 02/15/24 01:31 02/15/24 01:27 02/15/24 01:25 02/15/24 01:22 02/15/24 01:20 02/15/24 01:17 02/15/24 01:14 02/15/24 01:13 02/15/24 01:12 02/15/24 01:12 02/15/24 01:09 02/15/24 01:07 02/15/24 01:03 02/15/24 01:02 02/15/24 01:02 02/15/24 01:00 02/15/24 00:57 02/15/24 00:53 02/15/24 00:52 02/15/24 00:52 02/15/24 00:47 02/15/24 00:42 02/15/24 00:42 02/15/24 00:37 02/15/24 00:32 02/15/24 00:32 02/15/24 00:29 02/15/24 00:28 02/15/24 00:27 02/15/24 00:22 02/15/24 00:22 02/15/24 00:18 02/15/24 00:17 02/15/24 00:15 02/15/24 00:13 02/15/24 00:12 02/15/24 00:12 02/14/24 23:03 02/14/24 23:02 02/14/24 22:57 02/14/24 22:52 02/14/24 22:47 02/14/24 22:42 02/14/24 22:37 02/14/24 22:37 02/14/24 22:37 02/14/24 22:32 02/14/24 22:30 02/14/24 22:30 02/14/24 22:27 02/14/24 22:22 02/14/24 22:18 02/14/24 22:17 02/14/24 22:16 02/14/24 22:12 02/14/24 22:07 02/14/24 22:03 02/14/24 22:02 02/14/24 22:00 02/14/24 22:00 02/14/24 21:57 02/14/24 21:52 02/14/24 21:47 02/14/24 21:42 02/14/24 21:37 02/14/24 21:33 02/14/24 21:32 02/14/24 21:30 02/14/24 21:30 02/14/24 21:27 02/14/24 21:22 02/14/24 21:17 02/14/24 21:12 02/14/24 21:07 02/14/24 21:03 02/14/24 21:02 02/14/24 21:00 02/14/24 21:00 02/14/24 20:57 02/14/24 20:52 02/14/24 20:51 02/14/24 20:47 02/14/24 20:42 02/14/24 20:37 02/14/24 20:32 02/14/24 20:27 02/14/24 20:22 02/14/24 20:19 02/14/24 20:17 02/14/24 20:12 02/14/24 20:07 02/14/24 20:02 02/14/24 20:02 02/14/24 19:57 02/14/24 19:52 02/14/24 19:47 02/14/24 19:42 02/14/24 19:37 02/14/24 19:32 02/14/24 19:30 02/14/24 19:30 02/14/24 19:27 02/14/24 19:22 02/14/24 19:19 02/14/24 19:17 02/14/24 19:12 02/14/24 19:12 02/14/24 19:07 02/14/24 19:04 02/14/24 19:02 02/14/24 19:00 02/14/24 19:00 02/14/24 18:57 02/14/24 18:56 02/14/24 18:52 02/14/24 18:47 Resident Activity Tracking <Bhavesh Ríos MD, FACOG - Last Filed: 02/15/24 07:38> Resident Involvement: Resident Care Provided Care Provided: OB Delivery
[2024-02-15] MEDS: FERROUS SULFATE 325 MG TAB PO SCH (07:54)
[2024-02-15] MEDS: PRENATAL VITAMIN 1 TAB PO SCH (07:54)
[2024-02-15] MEDS: DOCUSATE SODIUM 100 MG CAP PO SCH (07:54)
[2024-02-15] MEDS: SIMETHICONE 80 MG CHEW PO SCH (07:54)
[2024-02-15] MEDS: ACETAMINOPHEN 325 MG TAB PO SCH (12:11)
[2024-02-15] MEDS ORDERED: ONDANSETRON INJ 2 MG/ML 2 ML VIAL IV PRN (17:01)
[2024-02-15] MEDS ORDERED: PROMETHAZINE 12.5 MG/50.5 ML BAG IV PRN (17:01)
[2024-02-15] MEDS ORDERED: HYDROmorphone INJ 0.5 MG/0.5 ML SYR IV PRN (17:01)
[2024-02-15] MEDS ORDERED: oxyCODONE HCL IR 5 MG TAB (IMMEDIATE RELEASE) PO PRN (17:01)
[2024-02-15] MEDS ORDERED: diphenhydrAMINE 50 MG/ML VIAL IV PRN (17:01)
[2024-02-15] MEDS ORDERED: diphenhydrAMINE Capsule 25 MG CAP PO PRN (17:01)
[2024-02-15 21:08] VITALS: RESP 18
[2024-02-16] MEDS: IBUPROFEN 600 MG TAB PO SCH (05:55)
[2024-02-16] MEDS ORDERED: KETOROLAC 30 MG/ML VIAL IV PRN (06:00)
--- NOTE | 2024-02-16 06:16 | Obstetrical Progress Note ---
Date of Service <Gerhard Longo MD - Last Filed: 02/16/24 07:31> February 16, 2024 Assessment & Plan <Gerhard Longo MD - Last Filed: 02/16/24 07:31> (1) care and examination: (2) Prior with demise, antepartum: (3) Encounter for supervision of normal intrauterine in multigravida, antepartum: Plan POD#2 s/p CS at term: Stable. Rh+, gbs -, ri, VSS H&H noted, pt asymptomatic Continue routine care, continue OOB and ambulation, diet as tolerated Pt desires DC this afternoon <Ana Patel MD, FACOG - Last Filed: 02/16/24 08:06> (1) care and examination: (2) Prior with demise, antepartum: (3) Encounter for supervision of normal intrauterine in multigravida, antepartum: Subjective <Gerhard Longo MD - Last Filed: 02/16/24 07:31> Chen is a 33 y/o female who is POD#2 following delivery at 38 weeks d/t FTP. Reports minimal abd pain/cramping, mostly around incision when getting up Is voiding, eating, and ambulating No BMs yet but is passing gas Having appropriate lochia Planning for exclusive . Constitutional: no fever, no chills or no sweats Respiratory: no dyspnea Cardiovascular: no chest pain, no palpitations or no calf pain Breast: no breast pain Gastrointestinal: no nausea or no vomiting Genitourinary (female): no dysuria Neurologic: no headache(s) Physical Exam <Gerhard Longo MD - Last Filed: 02/16/24 07:31> General: Alert, oriented. No acute distress. Cardiac: Regular rate and rhythm, no murmurs, rubs, or gallops. Respiratory: Clear to auscultation bilaterally. No increased work of breathing. Symmetrical chest rise. No respiratory distress. Abdomen: Soft, nontender, nondistended. Bowel sounds present. Uterus: Uterine fundus firm, nontender, palpable 2cm below the umbilicus. Surgical scar healing well Lower extremities: No lower extremity edema or swelling. No deep calf pain. Results & Data <Gerhard Longo MD - Last Filed: 02/16/24 07:31> Vital Signs (Past 12 Hours) Vital Signs Temp Pulse Resp BP Pulse Ox O2 Del Method 02/16/24 00:15 36.6 C 84 18 122/80 97 Room Air 02/15/24 20:10 Room Air 02/15/24 20:10 36.7 C 89 18 103/65 96 Room Air Laboratory Results Hgb 9.0 g/dl (12.0-16.0) L D 02/16/24 05:54 Hct 28.4 % (37.0-47.0) L 02/16/24 05:54 Supervising Physician <Ana Patel MD, FACOG - Last Filed: 02/16/24 08:06> Co-Signing Physician Notes Resident Physician Supervision Note: I was present with Dr. Longo during the history and exam. I discussed the case with the resident and agree with the findings and plan as documented in the note. Any exceptions or clarifications are listed here: stable, doing well. wants to go home. only day 1.5. eating, voiding, ambulating, no pain issues. does not want script for oxycodone. instructions reviewed. f/u 6wk . abd soft ff 2 down ,nt, incision c/d/i with steris. ext nt calves. will put in dc but pt ok to change to her mind. breast/rhpos/ri Documented By: Ana Patel MD, FACOG Resident Activity Tracking <Gerhard Longo MD - Last Filed: 02/16/24 07:31> Resident Involvement: Resident Care Provided Care Provided: Adult Hospital Medicine and OB Delivery
[2024-02-16 06:36] LABS: Basophils # (auto) 0.02 K/uL (0.00-0.20); Basophils % (auto) 0.2 %; Eosinophils # (auto) 0.04 K/uL (0.00-0.50); Eosinophils % (auto) 0.5 %; Hematocrit (blood only) 28.4 % (37.0-47.0); Immature Granulocytes # (auto) 0.08 K/uL (0.01-0.20); Immature Granulocytes % (auto) 0.9 %; Lymphocytes # (auto) 1.83 K/uL (1.20-3.40); Lymphocytes % (auto) 21.2 %; Mean Corpuscular Hemoglobin 27.7 pg (25.0-34.0); Mean Corpuscular Hgb Conc 31.7 g/dL (32.0-36.0); Mean Corpuscular Volume 87.4 fL (80.0-100.0); Mean Platelet Volume 10.2 fL (9.4-12.4); Monocytes # (auto) 0.68 K/uL (0.11-0.59); Monocytes % (auto) 7.9 %; Neutrophils # (auto) 5.98 K/uL (1.40-6.50); Neutrophils % (auto) 69.3 %; Platelet Count 263 K/uL (130-400); RDW Coefficient of Variation 13.5 % (11.5-14.5); RDW Standard Deviation 42.5 fL (36.4-46.3); Red Blood Count 3.25 M/uL (4.20-5.40); White Blood Count 8.63 K/ul (4.8-10.8)
[2024-02-16 08:50] VITALS: BP 105/67; TEMP 97.7; O2SAT 96
[2024-02-16 11:55] VITALS: PULSE 84
[2024-02-16] MEDS ORDERED: bisacodyL 5 MG TABEC PO SCH (20:00)
[2024-02-17] MEDS ORDERED: bisacodyL 10 MG SUPP PR PRN (00:04)
[2024-02-17] MEDS ORDERED: IBUPROFEN 600 MG TAB PO PRN (06:00)
[2024-02-17] MEDS ORDERED: ACETAMINOPHEN 325 MG TAB PO PRN (12:00)
--- NOTE | 2024-02-18 10:57 | Discharge Summary ---
Date of Service February 18, 2024 Admission HPI Per Admitting Provider Visit ALBERTA Calculator Estimated Delivery Date Method Current WG Current Estimate 02/29/24 LMP (Certain) 37w 3d Other Estimates 03/01/24 Ultrasound #1 37w 2d LMP: 04/29/23 : 3 Full term: 1 Premature: 0 Total Number of Induced Abortions: 0 Total Number of Spontaneous Abortions: 1 Ectopics: 0 Multiple births: 0 Number of Living Children: 0 and Delivery Plans Prior [place]FD at 37 weeks [place] [facility] [place] 32 weeks (2x weekly NSTs) Growth U/S 28 weeks Induction Feb 13 Admission Exam (Per Admitting) Constitutional WD/WN, vitals as above well developed and well nourished Respiratory normal respiratory effort, lungs clear to auscultation normal respiratory effort Cardiovascular RRR, no murmur, no edema Gastrointestinal (Abdomen) normal bowel sounds, soft, nontender, no hepatosplenomegaly Discharge Data Consultations 02/14/24 08:44 Consult Anesthesiology Stat Procedures Performed Operation Date: 02/14/24 23:00 Actual Procedures p Section in for the of a live male child at 2330 (Bilateral) - Bhavesh Ríos MD, [facility] Course (1) care and examination: (2) Prior with demise, antepartum: (3) Encounter for supervision of normal intrauterine in multigravida, antepartum: Plan POD#2 s/p CS at term: Stable. Rh+, gbs -, ri, VSS H&H noted, pt asymptomatic Continue routine care, continue OOB and ambulation, diet as tolerated Pt desires DC this afternoon Supervising Physician Co-Signing Physician Notes Resident Physician Supervision Note: I was present with Dr. Longo during the history and exam. I discussed the case with the resident and agree with the findings and plan as documented in the note. Any exceptions or clarifications are listed here: stable, doing well. wants to go home. only day 1.5. eating, voiding, ambulating, no pain issues. does not want script for oxycodone. instructions reviewed. f/u 6wk . abd soft ff 2 down ,nt, incision c/d/i with steris. ext nt calves. will put in dc but pt ok to change to her mind. breast/rhpos/ri Documented By: Ana Patel MD, FACOG Coding Level of Care Code None Diagnoses care and examination Z39.2 Prior with demise, antepartum O09.299 Encounter for supervision of normal intrauterine in multigravida, antepartum Z34.80
== END 2024-02-16 16:15 | disposition home or self-care (01) | DRG 788 ==
LOC: 4S1 08:00 → 4E2 02-15 03:16
DX: Z37.0 Single live birth; O36.63X0 Maternal care for excessive fetal growth, third trimester, not applicable or unspecified; O66.41 Failed attempted vaginal birth after previous cesarean delivery; O62.1 Secondary uterine inertia; Z3A.38 38 weeks gestation of pregnancy; O34.219 Maternal care for unspecified type scar from previous cesarean delivery; O69.81X0 Labor and delivery complicated by cord around neck, without compression, not applicable or unspecified; O32.4XX0 Maternal care for high head at term, not applicable or unspecified